=== PATIENT | female | born 1985 | race African-American/Black ===

== ENCOUNTER 2016-03-17 11:54 | Emergency (ER) | payer OTHER ==
[~2016-03-17] VITALS: Ht 175.3 cm; Wt 99.8 kg
[~2016-03-17 11:54] MED LIST: ALBUTEROL SULF8.5 GM INH; BACTRIM DS TAB1 EAC1 ORAL; FLUCONAZOLE100 MG ORAL; IBUPROFEN600 MG ORAL; LEVAQUIN750 MG ORAL; NKM; NORCO 5-325 TA1 EACH ORAL; PREDNISONE20 MG ORAL
[2016-03-17 12:11] VITALS: BP 127/84
[2016-03-17] MEDS ORDERED: Acetaminophen 500mg (ES) tab ORAL ONE (13:00)
--- NOTE | 2016-03-17 15:25 | Emergency Room Report ---
History of Present Illness General Chief Complaint: Lower Back Pain or Injury Source: Patient Present Illness HPI 30-year-old female presents to emergency Department complaining of left-sided adnexal pain radiating up into the left hip x2 days. She reports pain is 10 on 10 in severity has had minimal response to Motrin. Pt. reports pain awoke her form sleep this am. Patient states she had a history of fibroids and irregular periods however after being placed on oral control menstrual cycles are more regular she reports recent pain during intercourse, denies history of STDs. Patient denies vaginal bleeding or discharge. Denies . Denies nausea, vomiting, fevers, chills, dysuria, frequency, or hematuria. Denies fall/trauma, pain while lying down, minimal relief with standing. no pain exacerbation with weight. Denies CP, Palpitations, LOC, AMS, dizziness, Changes in Vision, Sensation, paresthesias, or a sudden severe headache. Allergies: Coded Allergies: No Known Allergies (Unverified , 05/09/12) Patient History Past Medical History: see triage record Past Surgical History: none Pertinent Family History: none Last Menstrual Period: 03/14/2016 Now: No : 0 Para: 0 Reviewed Nursing Documentation: PMH: Agreed, PSxH: Agreed Nursing Documentation-PMH Hx Asthma: Yes Hx Neurological Problems: No - Fracture dislocation of right 5th finger Review of Systems All Other Systems: negative except mentioned in HPI Physical Exam Vital Signs Date Time Temp Pulse Resp B/P Pulse Ox O2 Delivery O2 Flow Rate FiO2 03/17/16 12:03 98.4 89 16 127/84 100 Room Air Sp02 EP Interpretation: reviewed, normal General Appearance: no apparent distress, alert, GCS 15, non-toxic Head: normocephalic, atraumatic Eyes: bilateral eye PERRL, bilateral eye normal inspection ENT: hearing grossly normal, normal pharynx, no angioedema, normal voice Neck: full range of motion, supple/symm/no masses Respiratory: chest non-tender, lungs clear, normal breath sounds, speaking full sentences Cardiovascular #1: regular rate, rhythm, no edema Gastrointestinal: normal bowel sounds, non tender, soft, no mass, no organomegaly, no bruit, non-distended, no guarding, no hernia, no pulsatile mass , no rebound, other - negative macburnys, no peritoneal signs, negative rosvigns. Rectal: deferred Genitourinary: normal inspection, no CVA tenderness, cervix normal, ext genitalia/vag normal, other - left adenexal TTP Musculoskeletal: back normal, gait/station normal, normal range of motion, non- tender, no calf tenderness Neurologic: alert, oriented x3, responsive, motor strength/tone normal, sensory intact, speech normal Psychiatric: judgement/insight normal, memory normal, mood/affect normal, no suicidal/homicidal ideation Reflexes: 4+ bicep (R), 4+ bicep (L), 4+ tricep (R), 4+ tricep (L), 4+ knee (R) , 4+ knee (L) Skin: normal color, no rash, warm/dry, well hydrated Lymphatic: no adenopathy Medical Decision Making PA Attestation Dr. Bland is my supervising Physician whom patient management has been discussed with. Diagnostic Impression: Primary Impression: Ovarian cyst Qualified Codes: N83.201 - Unspecified ovarian cyst, right side; N83.202 - Unspecified ovarian cyst, left side ER Course Pt. presents to the ED c/o of Left -sided adnexal pain, 10/10 in severity. pain awoke pt. from sleep this am pt also reports intercourse exacerbated pain. Ddx considered but are not limited to Diverticulitis, acute appy, ovarian torsion, ectopic , PID tubo-ovarian abscess, ovarian cyst. Vital signs: are WNL, pt. is afebrile H&PE are most consistent with possible ovarian cyst, however due to presentation will r/o torsion, ectopic, and stone. ORDERS: -URINE HCG: Negative -Pelvic US Complete: bilateral ovarian cysts, no ectopic, no torsion , good doppler flow- Per preliminary radiology report ED INTERVENTIONS: -5mg Warren DISCHARGE: At this time pt. is stable for d/c to home. Will provide printed patient care instructions, and any necessary prescriptions. Care plan and follow up instructions have been discussed with the patient prior to discharge. Last Vital Signs Date Time Temp Pulse Resp B/P Pulse Ox O2 Delivery O2 Flow Rate FiO2 03/17/16 12:11 98.4 16 127/84 100 Room Air 03/17/16 12:03 89 Disposition: HOME, SELF-CARE Condition: Stable Scripts Acetaminophen* (TYLENOL EXTRA STRENGTH*) 500 Mg Tablet 500 MG ORAL Q6H, #20 TAB 0 Refills Prov: Nallely Krueger 03/17/16 Ibuprofen* (MOTRIN*) 600 Mg Tablet 600 MG ORAL THREE TIMES A DAY, #30 TAB 0 Refills Prov: Nallely Krueger 03/17/16 Referrals: NON PHYSICIAN (PCP) Patient Instructions: Ovarian Cyst Additional Instructions: Take medications as directed. Follow up with PCP in 3-5 days Return sooner to ED if new symptoms occur, or current symptoms become worse. Do not drink alcohol, drive, or operate heavy machinery while taking [ ] as this may cause drowsiness. Nallely Krueger Mar 17, 2016 15:25
--- NOTE | 2016-03-17 15:45 | Diagnostic Imaging Report ---
Indication:Lower abdominal and pelvic pain Technique: Grayscale and duplex Doppler imaging of the pelvis performed utilizing a transabdominal scan and endovaginal scan. Comparison: None Findings: Uterus is retroverted. The endometrial stripe is approximately 7 mm in thickness and appears normal. There is a cyst demonstrated within the left ovary measuring 2.8 x 1.2 cm. There is Doppler evidence of blood flow within the left ovary which appears normal otherwise. Right ovary is notable for a 1.7 cm cyst.. Uterus measures 7.6 x 4.8 x 4.3 cm. Right ovary 3.8 x 4.1 x 1.5 cm. Left ovary 5.2 x 3.6 x 2.1 cm. Impression: Bilateral ovarian cysts. Followup recommended at 6 weeks. Negative exam otherwise
[2016-03-17 16:03] VITALS: BP 124/81
[2016-03-17] MEDS ORDERED: IBUPROFEN600 MG ORAL (16:06)
[2016-03-17] MEDS ORDERED: TYLENOL EXTRA500 MG ORAL (16:06)
== END 2016-03-17 16:08 | disposition home or self-care (01) ==
LOC: EMR 13:10
DX: N83.201 Unspecified ovarian cyst, right side (principal); N83.202 Unspecified ovarian cyst, left side; J45.909 Unspecified asthma, uncomplicated
CPT/HCPCS: 76856; 81025; 99283

== ENCOUNTER 2016-04-15 16:40 | Emergency (ER) | payer OTHER ==
[~2016-04-15] VITALS: Ht 170.2 cm; Wt 99.8 kg
[~2016-04-15 16:40] MED LIST changes: +TYLENOL EXTRA500 MG ORAL
[2016-04-15] MEDS ORDERED: Morphine Sulfate 4mg/ml Inj IM ONE (17:15)
--- NOTE | 2016-04-15 18:03 | Emergency Room Report ---
History of Present Illness General Chief Complaint: Abdominal Pain Source: Patient Present Illness HPI 30-year-old female presents to emergency Department complaining of 10 out of 10 in severity uterine pain x2 days. Patient states she was just diagnosed with endometriosis and presents with her paperwork from ultrasound with diagnosis. Patient states that the [facility] on just began placing her on OCPs and gave her Motrin which is not helping. Patient reports nausea due to intense pain. Patient denies at this time patient denies fevers or chills. Patient denies constipation or diarrhea patient denies vaginal discharge or history of STI. Allergies: Coded Allergies: No Known Allergies (Unverified , 05/09/12) Patient History Past Medical History: see triage record Past Surgical History: none Pertinent Family History: none Last Menstrual Period: 04/11/2016 Now: No Immunizations: UTD Reviewed Nursing Documentation: PMH: Agreed, PSxH: Agreed Nursing Documentation-PMH Past Medical History: No History, Except For Hx Asthma: Yes Hx Neurological Problems: No - Fracture dislocation of right 5th finger Review of Systems All Other Systems: negative except mentioned in HPI Physical Exam Vital Signs Date Time Temp Pulse Resp B/P Pulse Ox O2 Delivery O2 Flow Rate FiO2 04/15/16 16:46 98.4 77 14 131/82 100 Room Air Sp02 EP Interpretation: reviewed, normal General Appearance: alert, GCS 15, non-toxic, mild distress Head: normocephalic, atraumatic Eyes: bilateral eye PERRL, bilateral eye normal inspection ENT: hearing grossly normal, normal pharynx, no angioedema, normal voice Neck: full range of motion, supple/symm/no masses Respiratory: chest non-tender, lungs clear, normal breath sounds, speaking full sentences Cardiovascular #1: regular rate, rhythm, no edema Gastrointestinal: normal bowel sounds, soft, no rebound, other - midline uterine/bladder TTP. Negative Crandall signs, Negative MacBurney's sign, Negative Rosvigns Sign, Negative Psoas, No Peritoneal signs. Rectal: deferred Genitourinary: normal inspection, no CVA tenderness Musculoskeletal: back normal, gait/station normal, normal range of motion, non- tender, no calf tenderness Neurologic: alert, oriented x3, responsive, motor strength/tone normal, sensory intact, speech normal Psychiatric: judgement/insight normal, memory normal, mood/affect normal, no suicidal/homicidal ideation Skin: normal color, no rash, warm/dry, well hydrated Lymphatic: no adenopathy Medical Decision Making PA Attestation Dr. cavazos is my supervising Physician whom patient management has been discussed with. Diagnostic Impression: Primary Impression: Hx of endometriosis Additional Impression: Pelvic pain ER Course 30-year-old female presents to emergency Department complaining of 10 out of 10 in severity uterine pain x2 days. Patient states she was just diagnosed with endometriosis and presents with her paperwork from ultrasound with diagnosis. Patient states that the [facility] on just began placing her on OCPs and gave her Motrin which is not helping. Patient reports nausea due to intense pain. Patient denies at this time patient denies fevers or chills. Patient denies constipation or diarrhea patient denies vaginal discharge or history of STI. Ddx considered but are not limited to PID, Endometriosis, , Ectopic, UTI Vital signs: are WNL, pt. is afebrile H&PE are most consistent with Endometriosis ORDERS: - UA: unremarkable -Urine Hcg: Negative ED INTERVENTIONS: - 4mg Morphine IM -Hudson PO DISCHARGE: At this time pt. is stable for d/c to home. Will provide printed patient care instructions, and any necessary prescriptions. Care plan and follow up instructions have been discussed with the patient prior to discharge. Labs Test 04/15/16 17:31 Urine Color Yellow Urine Appearance Clear Urine pH 6 (4.5-8.0) Urine Specific [place] 1.015 (1.005-1.035) Urine Protein Negative (NEGATIVE) Urine Glucose (UA) Negative (NEGATIVE) Urine Ketones Negative (NEGATIVE) Urine Occult Blood Negative (NEGATIVE) Urine Nitrite Negative (NEGATIVE) Urine Bilirubin Negative (NEGATIVE) Urine Urobilinogen Normal MG/DL (0.0-1.0) Urine Leukocyte Esterase 1+ (NEGATIVE) Urine RBC 0-2 /HPF (0 - 2) Urine WBC 0-2 /HPF (0 - 2) Urine Squamous Epithelial Cells Few /LPF (NONE/OCC) Urine Bacteria Few /HPF (NONE) Urine HCG, Qualitative Negative Last Vital Signs Date Time Temp Pulse Resp B/P Pulse Ox O2 Delivery O2 Flow Rate FiO2 04/15/16 16:46 98.4 77 14 131/82 100 Room Air Disposition: HOME, SELF-CARE Condition: Stable Scripts Ibuprofen* (MOTRIN*) 600 Mg Tablet 600 MG ORAL THREE TIMES A DAY, #30 TAB 0 Refills Prov: Nallely Krueger 04/15/16 Hydrocodone Bit/Acetaminophen 5-325* (NORCO 5-325*) 1 Each Tablet 1 TAB ORAL Q6H Y for For Pain, #10 TAB 0 Refills Prov: Nallley Krueger 04/15/16 Referrals: [facility],REFERRING (PCP) Patient Instructions: Endometriosis Additional Instructions: Take medications as directed. Follow up with PCP or OBGYN in 3 days Return sooner to ED if new symptoms occur, or current symptoms become worse. Do not drink alcohol, drive, or operate heavy machinery while taking Hudson as this may cause drowsiness. Nallely Krueger Apr 15, 2016 18:02
[2016-04-15 18:08] LABS: APPEARANCE,URINE CLEAR; KETONES,URINE NEGATIVE (NEGATIVE); LEUKOCYTE ESTERASE ,URINE 1+ (NEGATIVE); NITRITE,URINE NEGATIVE (NEGATIVE); PH,URINE 6 (4.5-8.0); PROTEIN,URINE NEGATIVE (NEGATIVE); UROBILINOGEN,URINE NORMAL MG/DL (0.0-1.0)
[2016-04-15 18:21] VITALS: BP 135/78
[2016-04-15] MEDS ORDERED: NORCO 5-325 TA1 EACH ORAL (18:26)
[2016-04-15] MEDS ORDERED: IBUPROFEN600 MG ORAL (18:26)
[2016-04-15] MEDS ORDERED: Norco 5mg/325mg tab ORAL ONE (18:30)
[2016-04-15 18:39] LABS: BACTERIA,URINE FEW /HPF; RBC,URINE 0-2 /HPF (0 - 2); SQUAMOUS EPITHELIAL CELL,UR FEW /LPF (NONE/OCC); WBC,URINE 0-2 /HPF (0 - 2)
[2016-04-15 19:01] VITALS: BP 135/78
== END 2016-04-15 19:02 | disposition home or self-care (01) ==
LOC: EMR 17:18
DX: R10.2 Pelvic and perineal pain (principal); J45.909 Unspecified asthma, uncomplicated
CPT/HCPCS: 81003; 81025; 96372; 99283; J2270

== ENCOUNTER 2016-06-10 04:20 | Emergency (ER) | payer OTHER ==
[~2016-06-10] VITALS: Ht 170.2 cm; Wt 95.3 kg
[2016-06-10] MEDS ORDERED: HYDROmorphone 1mg/ml Carpuject IVP ONE (05:00)
--- NOTE | 2016-06-10 05:04 | Emergency Room Report ---
History of Present Illness General Chief Complaint: Abdominal Pain Source: Patient Present Illness HPI This is a 30-year-old female with history of endometriosis. She had recent laparoscopic surgery done at [facility] on June 04. His for lysis of adhesion. Also to confirm that she has endometriosis. She was due wanted tonight when she developed severe pain. Pain is diffuse in nature. She had one episode vomiting. Also noted some vaginal bleeding. Denies any fever or chills. No fever or chills. Had only one bowel movement but that was on the first day. Not passing gas. Allergies: Coded Allergies: No Known Allergies (Unverified , 05/09/12) Patient History Past Medical History: see triage record, old chart reviewed Past Surgical History: other Pertinent Family History: none Social History: Denies: smoking Last Menstrual Period: JUNE 04 Now: No : 0 Para: 0 Immunizations: other Reviewed Nursing Documentation: PMH: Agreed, PSxH: Agreed Nursing Documentation-PMH Hx Asthma: Yes Hx Neurological Problems: No - Fracture dislocation of right 5th finger Review of Systems Eye: Denies: blurred vision, eye pain ENT: Denies: ear pain, nose congestion, throat swelling Respiratory: Denies: cough, shortness of breath Cardiovascular: Denies: chest pain, palpitations Gastrointestinal: Reports: abdominal pain, nausea, vomiting, Denies: diarrhea Musculoskeletal: Denies: back pain, joint pain Skin: Denies: rash Neurological: Denies: headache, numbness Endocrine: Denies: increased thirst, increased urine Hematologic/Lymphatic: Denies: easy bruising All Other Systems: negative except mentioned in HPI Physical Exam Vital Signs Date Time Temp Pulse Resp B/P Pulse Ox O2 Delivery O2 Flow Rate FiO2 06/10/16 04:24 98.1 76 18 142/95 100 Room Air vitals normal Sp02 EP Interpretation: reviewed, normal General Appearance: well appearing, no apparent distress, alert Head: normocephalic, atraumatic Eyes: bilateral eye EOMI, bilateral eye PERRL ENT: hearing grossly normal, normal pharynx Neck: full range of motion, supple, no meningismus Respiratory: chest non-tender, lungs clear, normal breath sounds Cardiovascular #1: regular rate, rhythm, no murmur Gastrointestinal: normal bowel sounds, no mass, no organomegaly, no bruit, non- distended, tenderness - Diffuse, other - Umbilical site: Clean. No redness, decreased bowel sounds Musculoskeletal: back normal, gait/station normal, normal range of motion Psychiatric: mood/affect normal Skin: warm/dry Medical Decision Making Diagnostic Impression: Primary Impression: Post-operative pain ER Course Patient presents with postoperative pain. His most likely secondary to gas and constipation. I see no obvious obstruction or free air. Official CT scan reading from radiologist pending. If negative patient can be discharged home. Lab Results Impression labs unremarkable CT/MRI/US Diagnostic Results CT/MRI/US Diagnostic Results : Imaging Test Ordered: CT abdomen and pelvis Impression CT read by radiologist: no obstruction or perforation. Last Vital Signs Date Time Temp Pulse Resp B/P Pulse Ox O2 Delivery O2 Flow Rate FiO2 06/10/16 04:24 98.1 76 18 142/95 100 Room Air Status: improved Disposition: HOME, SELF-CARE Condition: Stable Referrals: [facility],REFERRING (PCP) Patient Instructions: Abdominal Pain, Adult Additional Instructions: Followup your Dr. in 2-3 days. Return if symptom worsen. KATIE STALLWORTH M.D. Jun 10, 2016 05:04
[2016-06-10 05:23] VITALS: BP 117/98
[2016-06-10 05:33] LABS: BASOPHILS % (AUTO) 0.9 % (0.0-2.0); EOSINOPHILS % (AUTO) 2.5 % (0.0-3.0); LYMPHOCYTES % (AUTO) 34.6 % (20.0-45.0); MEAN CORPUSCULAR HEMOGLOBIN 29.5 PG (27.0-31.0); MEAN CORPUSCULAR HGB CONC 32.7 G/DL (32.0-36.0); MEAN CORPUSCULAR VOLUME 90 FL (80-99); MONOCYTES % (AUTO) 7.1 % (1.0-10.0); NEUTROPHILS % (AUTO) 54.9 % (45.0-75.0); PLATELET COUNT 452 K/UL (150-450); RED BLOOD COUNT 4.39 M/UL (4.20-5.40); RED CELL DISTRIBUTION WIDTH 12.3 % (11.6-14.8); WHITE BLOOD COUNT 7.3 K/UL (4.8-10.8)
[2016-06-10 05:36] LABS: APPEARANCE,URINE CLEAR; KETONES,URINE NEGATIVE (NEGATIVE); LEUKOCYTE ESTERASE ,URINE NEGATIVE (NEGATIVE); NITRITE,URINE NEGATIVE (NEGATIVE); PH,URINE 7 (4.5-8.0); PROTEIN,URINE NEGATIVE (NEGATIVE); UROBILINOGEN,URINE NORMAL MG/DL (0.0-1.0)
[2016-06-10 05:45] LABS: SQUAMOUS EPITHELIAL CELL,UR MODERATE /LPF (NONE/OCC); WBC,URINE 0-2 /HPF (0 - 2)
[2016-06-10 05:46] LABS: BACTERIA,URINE FEW /HPF
[2016-06-10 05:49] LABS: ALANINE AMINOTRANSFERASE 23 U/L (3-33); ALBUMIN/GLOBULIN RATIO 1.3 (1.0-2.7); ANION GAP 15 (5-15); ASPARTATE AMINO TRANSFERASE 24 U/L (5-40); CALCIUM 8.6 mg/dL (8.6-10.2); CARBON DIOXIDE 24 mEQ/L (20-30); CHLORIDE 103 mEQ/L (98-107); CREATININE 0.6 mg/dL (0.5-0.9); GLOMERULAR FILTRATION RATE > 60 mL/min (>60); HEMOLYSIS 4; LIPASE 17 U/L (< 60); POTASSIUM 3.3 mEQ/L (3.4-4.9); SODIUM 142 mEQ/L (135-145); TOTAL PROTEIN 6.7 g/dL (6.6-8.7)
[2016-06-10 06:37] VITALS: BP 117/98
--- NOTE | 2016-06-10 10:57 | Diagnostic Imaging Report ---
Indication: Left lower quadrant pain x5 hours Technique: Spiral acquisitions obtained through the abdomen and pelvis. No oral contrast utilized, per emergency room physician request No IV contrast utilized, per referring physician request.. Multiplanar reconstructions were generated. Total dose length product 938 mGycm. CTDIvol(s) 17 mGy Comparison: Findings: No renal or calculi, hydronephrosis, or hydroureter. Lack of IV contrast limits assessment of the renal parenchyma. No gross renal parenchymal mass or cyst demonstrated. Lack of IV contrast limits assessment of the other solid organs. Liver demonstrates a 1.5 cm cyst in segment, as well as questionably other small subcentimeter low-attenuation lesions which are too small to characterize. The gallbladder, bile ducts, pancreas, spleen, adrenals are unremarkable. No retroperitoneal or mesenteric mass or adenopathy. No pelvic mass or adenopathy. The appendix is not definitely identified, but there are no findings to suggest acute appendicitis. No evidence of diverticulosis or diverticulitis. No small bowel distention. No free or loculated peritoneal air or fluid. The distal esophagus, stomach, duodenum are unremarkable. The included lung bases are clear. The bones are unremarkable. Impression: No acute abnormality Incidental finding of right lobe hepatic cyst This agrees with the preliminary interpretation provided overnight by Dr. Saldana The CT scanner at [facility] is accredited by the [employer] and the scans are performed using protocols designed to limit radiation exposure to as low as reasonably achievable to attain images of sufficient resolution adequate for diagnostic evaluation.
== END 2016-06-10 06:37 | disposition home or self-care (01) ==
LOC: EMR 04:30
DX: R10.30 Lower abdominal pain, unspecified (principal); G89.18 Other acute postprocedural pain; J45.909 Unspecified asthma, uncomplicated; Z98.890 Other specified postprocedural states
CPT/HCPCS: 36415; 74176; 80053; 81003; 81025; 83690; 85025; 96360; 96374; 96375; 99284; J1170; J2405

== ENCOUNTER 2016-06-29 18:50 | Emergency (ER) | payer OTHER ==
[~2016-06-29] VITALS: Ht 170.2 cm; Wt 90.7 kg
[2016-06-29 19:25] VITALS: BP 150/86
[2016-06-29] MEDS ORDERED: Ketorolac 30mg Inj IV ONE (20:00)
[2016-06-29] MEDS ORDERED: Morphine Sulfate 4mg/ml Inj IVP ONE (20:00)
[2016-06-29 20:43] LABS: APPEARANCE,URINE SLIGHTLY CLOUDY; KETONES,URINE 3+ (NEGATIVE); LEUKOCYTE ESTERASE ,URINE 3+ (NEGATIVE); NITRITE,URINE POSITIVE (NEGATIVE); PH,URINE 7 (4.5-8.0); PROTEIN,URINE 3+ (NEGATIVE); UROBILINOGEN,URINE 4 MG/DL (0.0-1.0)
[2016-06-29 20:54] LABS: ALANINE AMINOTRANSFERASE 14 U/L (3-33); ALBUMIN/GLOBULIN RATIO 1.4 (1.0-2.7); ANION GAP 18 (5-15); ASPARTATE AMINO TRANSFERASE 15 U/L (5-40); CALCIUM 9.7 mg/dL (8.6-10.2); CARBON DIOXIDE 23 mEQ/L (20-30); CHLORIDE 99 mEQ/L (98-107); CREATININE 0.7 mg/dL (0.5-0.9); GLOMERULAR FILTRATION RATE > 60 mL/min (>60); HEMOLYSIS 19; LIPASE 19 U/L (< 60); POTASSIUM 3.8 mEQ/L (3.4-4.9); SODIUM 140 mEQ/L (135-145); TOTAL PROTEIN 8.2 g/dL (6.6-8.7)
[2016-06-29 21:14] LABS: BACTERIA,URINE FEW /HPF; RBC,URINE 20-30 /HPF (0 - 2); SQUAMOUS EPITHELIAL CELL,UR FEW /LPF (NONE/OCC)
[2016-06-29 21:26] LABS: BASOPHILS % (AUTO) 1.5 % (0.0-2.0); EOSINOPHILS % (AUTO) 0.1 % (0.0-3.0); MEAN CORPUSCULAR HEMOGLOBIN 31.4 PG (27.0-31.0); MEAN CORPUSCULAR HGB CONC 34.1 G/DL (32.0-36.0); MEAN CORPUSCULAR VOLUME 92 FL (80-99); MEAN PLATELET VOLUME 7.7 FL (6.5-10.1); MONOCYTES % (AUTO) 7.2 % (1.0-10.0); NEUTROPHILS % (AUTO) 75.2 % (45.0-75.0); PLATELET COUNT 297 K/UL (150-450); RED BLOOD COUNT 3.92 M/UL (4.20-5.40); RED CELL DISTRIBUTION WIDTH 12.5 % (11.6-14.8); WHITE BLOOD COUNT 9.1 K/UL (4.8-10.8)
[2016-06-29 21:31] VITALS: BP 128/91
[2016-06-29] MEDS ORDERED: cefTRIAXone 1 GM in NS 55 ML IVPB ONE (22:15)
--- NOTE | 2016-06-29 22:30 | Emergency Room Report ---
History of Present Illness General Chief Complaint: Abdominal Pain Source: Patient Present Illness HPI Patient presents with lower abdominal pain, vomiting bilious material and passing some bloody discharge. This began this morning. Pain is 10/10, burning and sharp. She had laparoscopy on June 04. She had excision of endometriosis and scars. She's only had incisional pain before today. This is also the area where the pain is. At this point she also has abdominal pain that suprapubic and mostly focused on the area of incision. No dysuria. No fevers. Loose stools, but not diarrhea. With endometriosis, she's had similar pain in the past. She doesn't believe she is . Due to go for hormonal treatment to induce a menopausal state tomorrow or Thursday. Allergies: Coded Allergies: No Known Allergies (Unverified , 05/09/12) Patient History Past Medical History: see triage record Past Surgical History: other - lap for endometriosis Social History: Denies: smoking Social History Narrative with sig other Last Menstrual Period: 07/05/16 Now: No Reviewed Nursing Documentation: PMH: Agreed, PSxH: Agreed Nursing Documentation-PMH Hx Asthma: Yes Hx Neurological Problems: No - Fracture dislocation of right 5th finger Review of Systems All Other Systems: negative except mentioned in HPI Physical Exam Vital Signs Date Time Temp Pulse Resp B/P Pulse Ox O2 Delivery O2 Flow Rate FiO2 06/29/16 18:52 98.1 74 16 139/74 100 Room Air Sp02 EP Interpretation: reviewed, normal General Appearance: well appearing, no apparent distress, GCS 15 Head: normocephalic Eyes: bilateral eye PERRL, bilateral eye normal inspection ENT: moist mucus membranes Neck: supple Respiratory: lungs clear, normal breath sounds Cardiovascular #1: regular rate, rhythm Cardiovascular #2: 2+ radial (R) Gastrointestinal: normal bowel sounds, soft, no guarding, no rebound, tenderness Genitourinary: no CVA tenderness Musculoskeletal: back normal, gait/station normal, normal range of motion Neurologic: alert, oriented x3, grossly normal Psychiatric: mood/affect normal Skin: normal inspection, warm/dry, other - incision no erythema or fluctuance Medical Decision Making Diagnostic Impression: Primary Impression: Pelvic pain Additional Impression: UTI (urinary tract infection) Qualified Codes: N30.00 - Acute cystitis without hematuria ER Course Patient with suprapubic pain post recent laparoscopic procedure. DDx: SBO, gastroenteritis, UTI, endometriosis, ovarian cyst, diverticulitis amongst others. Evaluation with IV, labs, abd film and urine. Patient will be treated with zofran and analgesics. Labs unremarkable (preg neg) except for UTI. Abd film NSBGP, no obstruction. Antibiotics given. Improved. Pain minimal. Patient stable for outpatient observation and treatment. Laboratory Tests Test 06/29/16 20:25 06/29/16 20:34 Urine Color Red Urine Appearance Slightly cloudy Urine pH 7 (4.5-8.0) Urine Specific [place] 1.015 (1.005-1.035) Urine Protein 3+ (NEGATIVE) H Urine Glucose (UA) Negative (NEGATIVE) Urine Ketones 3+ (NEGATIVE) H Urine Occult Blood 5+ (NEGATIVE) H Urine Nitrite Positive (NEGATIVE) H Urine Bilirubin Negative (NEGATIVE) Urine Urobilinogen 4 MG/DL (0.0-1.0) H Urine Leukocyte Esterase 3+ (NEGATIVE) H Urine RBC 20-30 /HPF (0 - 2) H Urine WBC 5-10 /HPF (0 - 2) H Urine Squamous Epithelial Cells Few /LPF (NONE/OCC) Urine Bacteria Few /HPF (NONE) Sodium Level 140 mEQ/L (135-145) Potassium Level 3.8 mEQ/L (3.4-4.9) Chloride Level 99 mEQ/L (98-107) Carbon Dioxide Level 23 mEQ/L (20-30) Anion Gap 18 (5-15) H Blood Urea Nitrogen 10 mg/dL (7-23) Creatinine 0.7 mg/dL (0.5-0.9) Estimate Glomerular Filtration Rate > 60 mL/min (>60) Glucose Level 102 mg/dL (74-106) Calcium Level 9.7 mg/dL (8.6-10.2) Total Bilirubin 0.4 mg/dL (0.0-1.2) Aspartate Amino Transferase (AST) 15 U/L (5-40) Alanine Aminotransferase (ALT) 14 U/L (3-33) Alkaline Phosphatase 94 U/L (35-104) Total Protein 8.2 g/dL (6.6-8.7) Albumin 4.8 g/dL (3.5-5.2) Globulin 3.4 g/dL Albumin/Globulin Ratio 1.4 (1.0-2.7) Lipase 19 U/L (< 60) Human Chorionic Gonadotropin, Quant < 1 mIU/mL White Blood Count 9.1 K/UL (4.8-10.8) Red Blood Count 3.92 M/UL (4.20-5.40) L Hemoglobin 12.3 G/DL (12.0-16.0) Hematocrit 36.1 % (37.0-47.0) L Mean Corpuscular Volume 92 FL (80-99) Mean Corpuscular Hemoglobin 31.4 PG (27.0-31.0) H Mean Corpuscular Hemoglobin Concent 34.1 G/DL (32.0-36.0) Red Cell Distribution Width 12.5 % (11.6-14.8) Platelet Count 297 K/UL (150-450) Mean Platelet Volume 7.7 FL (6.5-10.1) Neutrophils (%) (Auto) 75.2 % (45.0-75.0) H Lymphocytes (%) (Auto) 16.0 % (20.0-45.0) L Monocytes (%) (Auto) 7.2 % (1.0-10.0) Eosinophils (%) (Auto) 0.1 % (0.0-3.0) Basophils (%) (Auto) 1.5 % (0.0-2.0) Other X-Ray Diagnostic Results Other X-Ray Diagnostic Results : X-Ray Ordered: abd EP Interpretation: Yes Findings: other - NSBGP Number of Views: 1 Last Vital Signs Date Time Temp Pulse Resp B/P Pulse Ox O2 Delivery O2 Flow Rate FiO2 06/29/16 22:44 70 18 134/80 100 Room Air 06/29/16 22:43 98.1 Status: improved Disposition: HOME, SELF-CARE Condition: Improved Scripts Nitrofurantoin Monohyd/M-Cryst* (MACROBID 100 MG*) 100 Mg Capsule 100 MG ORAL EVERY 12 HOURS, #14 CAP Prov: Elieser Orozco M.D. 06/29/16 Ibuprofen* (MOTRIN*) 600 Mg Tablet 600 MG ORAL Q6H Y for For Pain, #20 TAB Prov: Elieser Orozco M.D. 06/29/16 Hydrocodone Bit/Acetaminophen 5-325* (NORCO 5-325*) 1 Each Tablet 1 TAB ORAL Q6H Y for For Pain, #10 TAB 0 Refills Prov: Elieser Orozco M.D. 06/29/16 Referrals: [facility],REFERRING (PCP) Elieser Orozco M.D. Jun 29, 2016 22:30
[2016-06-29] MEDS ORDERED: NORCO 5-325 TA1 EACH ORAL (22:32)
[2016-06-29] MEDS ORDERED: NITROFURANTOIN100 M2 ORAL (22:32)
[2016-06-29] MEDS ORDERED: IBUPROFEN600 MG ORAL (22:32)
[2016-06-29 22:43] VITALS: BP 129/82
[2016-06-29 22:44] VITALS: BP 134/80
--- NOTE | 2016-06-30 11:50 | Diagnostic Imaging Report ---
Indication: Abdominal pain Technique: Supine view of the abdomen Comparison: Pattern Vault Clerk image from abdomen pelvis CT dated 06/10/2016 Findings: Bowel gas gas pattern is unremarkable. No unusual masses or calcifications. Impression: Negative This agrees with the preliminary interpretation provided by the emergency room physician
== END 2016-06-29 22:45 | disposition home or self-care (01) ==
LOC: EMR 19:38
DX: R10.2 Pelvic and perineal pain (principal); N39.0 Urinary tract infection, site not specified; Z98.890 Other specified postprocedural states; J45.909 Unspecified asthma, uncomplicated; Z87.42 Personal history of other diseases of the female genital tract
CPT/HCPCS: 36415; 74000; 80053; 81003; 83690; 84702; 85025; 96360; 96374; 96375; 99284; J0696; J1885; J2270; J2405

== ENCOUNTER 2016-07-04 09:33 | Emergency (ER) | payer OTHER ==
[~2016-07-04] VITALS: Ht 170.2 cm; Wt 90.7 kg
[~2016-07-04 09:33] MED LIST changes: +NITROFURANTOIN100 M2 ORAL
[2016-07-04] MEDS ORDERED: Famotidine 20 MG/ 2ML VIAL IVP ONE (09:45)
[2016-07-04] MEDS ORDERED: Morphine Sulfate 4mg/ml Inj IVP ONE (09:45)
[2016-07-04] MEDS ORDERED: Ketorolac 30mg Inj IV ONE (09:45)
--- NOTE | 2016-07-04 09:47 | Emergency Room Report ---
History of Present Illness General Chief Complaint: To Be Triaged Source: Patient Present Illness HPI Patient presents with vomiting and abdominal pain. She was seen here June 29 for similar complaints of. She underwent laparoscopic surgery to remove endometriosis on June 04. The pain was fairly controlled until the . Evaluation at that time she had a normal white count and abdominal films were unremarkable. She was improved. Yesterday she received a Depo-Provera shot and subsequent to that she's been vomiting with abdominal pain. The pain is 10/10 and constant and diffuse. Is no fever. There's no dysuria. She's moving her bowels normally. She is taking antibiotics I prescribed for the UTI. A CT had been performed 06/10: Impression: No acute abnormality Incidental finding of right lobe hepatic cyst Allergies: Coded Allergies: No Known Allergies (Unverified , 05/09/12) Patient History Past Medical History: see triage record Past Surgical History: other - lap 06/04 Social History: Denies: smoking Social History Narrative with sig other Reviewed Nursing Documentation: PMH: Agreed, PSxH: Agreed Nursing Documentation-PMH Hx Asthma: Yes Hx Neurological Problems: No - Fracture dislocation of right 5th finger Review of Systems All Other Systems: negative except mentioned in HPI Medical Decision Making Diagnostic Impression: Primary Impression: Partially treated UTI Additional Impressions: Vomiting Qualified Codes: R11.2 - Nausea with vomiting, unspecified Abdominal pain Qualified Codes: R10.30 - Lower abdominal pain, unspecified ER Course The patient presents with abdominal pain after laparoscopic procedure or a month ago. She has endometriosis. She received a shot of Depo-Provera and has been vomiting since yesterday. Differential includes UTI, postsurgical pain, abdominal wall strain, pain from endometriosis. Evaluation will be with labs urinalysis. She'll receive IV hydration and Zofran and analgesia. No imaging studies indicated (unless WBC elevated). Labs are normal. Still with pyuria. Improved after treatment. Tolerating by mouth fluids. Patient stable for outpatient observation and treatment. Laboratory Tests Test 07/04/16 09:52 07/04/16 12:29 White Blood Count 6.2 K/UL (4.8-10.8) Red Blood Count 4.40 M/UL (4.20-5.40) Hemoglobin 13.1 G/DL (12.0-16.0) Hematocrit 40.7 % (37.0-47.0) Mean Corpuscular Volume 92 FL (80-99) Mean Corpuscular Hemoglobin 29.7 PG (27.0-31.0) Mean Corpuscular Hemoglobin Concent 32.1 G/DL (32.0-36.0) Red Cell Distribution Width 12.7 % (11.6-14.8) Platelet Count 341 K/UL (150-450) Mean Platelet Volume 7.8 FL (6.5-10.1) Neutrophils (%) (Auto) 77.5 % (45.0-75.0) H Lymphocytes (%) (Auto) 13.1 % (20.0-45.0) L Monocytes (%) (Auto) 8.0 % (1.0-10.0) Eosinophils (%) (Auto) 0.5 % (0.0-3.0) Basophils (%) (Auto) 0.9 % (0.0-2.0) Sodium Level 140 mEQ/L (135-145) Potassium Level 3.2 mEQ/L (3.4-4.9) L Chloride Level 98 mEQ/L (98-107) Carbon Dioxide Level 24 mEQ/L (20-30) Anion Gap 18 (5-15) H Blood Urea Nitrogen 6 mg/dL (7-23) L Creatinine 0.8 mg/dL (0.5-0.9) Estimate Glomerular Filtration Rate > 60 mL/min (>60) Glucose Level 95 mg/dL (74-106) Calcium Level 9.3 mg/dL (8.6-10.2) Total Bilirubin 0.4 mg/dL (0.0-1.2) Aspartate Amino Transferase (AST) 18 U/L (5-40) Alanine Aminotransferase (ALT) 14 U/L (3-33) Alkaline Phosphatase 95 U/L (35-104) Total Protein 7.9 g/dL (6.6-8.7) Albumin 4.4 g/dL (3.5-5.2) Globulin 3.5 g/dL Albumin/Globulin Ratio 1.2 (1.0-2.7) Lipase 27 U/L (< 60) Urine Color Pale yellow Urine Appearance Clear Urine pH 6 (4.5-8.0) Urine Specific [place] 1.010 (1.005-1.035) Urine Protein Negative (NEGATIVE) Urine Glucose (UA) Negative (NEGATIVE) Urine Ketones 3+ (NEGATIVE) H Urine Occult Blood 1+ (NEGATIVE) H Urine Nitrite Negative (NEGATIVE) Urine Bilirubin Negative (NEGATIVE) Urine Urobilinogen Normal MG/DL (0.0-1.0) Urine Leukocyte Esterase 3+ (NEGATIVE) H Urine RBC 2-4 /HPF (0 - 2) H Urine WBC 5-10 /HPF (0 - 2) H Urine Squamous Epithelial Cells Few /LPF (NONE/OCC) Urine Bacteria None /HPF (NONE) Urine HCG, Qualitative Negative Last Vital Signs Date Time Temp Pulse Resp B/P Pulse Ox O2 Delivery O2 Flow Rate FiO2 07/04/16 14:13 98.2 57 16 121/62 99 Room Air Status: improved Disposition: HOME, SELF-CARE Condition: Improved Scripts Tramadol Hcl* (ULTRAM*) 50 Mg Tablet 50 MG ORAL Q6H Y for For Pain, #12 TAB 0 Refills Prov: Elieser Orozco M.D. 07/04/16 Ondansetron Odt* (ZOFRAN ODT*) 4 Mg Tab.rapdis 4 MG ORAL Q6H Y for Nausea & Vomiting, #8 TAB 1 Refill Prov: Elieser Orozco M.D. 07/04/16 Elieser Orozco M.D. Jul 04, 2016 09:46
[2016-07-04 10:08] VITALS: BP 117/58
[2016-07-04 10:10] LABS: BASOPHILS % (AUTO) 0.9 % (0.0-2.0); EOSINOPHILS % (AUTO) 0.5 % (0.0-3.0); LYMPHOCYTES % (AUTO) 13.1 % (20.0-45.0); MEAN CORPUSCULAR HEMOGLOBIN 29.7 PG (27.0-31.0); MEAN CORPUSCULAR HGB CONC 32.1 G/DL (32.0-36.0); MEAN CORPUSCULAR VOLUME 92 FL (80-99); MEAN PLATELET VOLUME 7.8 FL (6.5-10.1); NEUTROPHILS % (AUTO) 77.5 % (45.0-75.0); PLATELET COUNT 341 K/UL (150-450); RED CELL DISTRIBUTION WIDTH 12.7 % (11.6-14.8); WHITE BLOOD COUNT 6.2 K/UL (4.8-10.8)
[2016-07-04 10:32] LABS: ALANINE AMINOTRANSFERASE 14 U/L (3-33); ALBUMIN/GLOBULIN RATIO 1.2 (1.0-2.7); ANION GAP 18 (5-15); ASPARTATE AMINO TRANSFERASE 18 U/L (5-40); CALCIUM 9.3 mg/dL (8.6-10.2); CARBON DIOXIDE 24 mEQ/L (20-30); CHLORIDE 98 mEQ/L (98-107); CREATININE 0.8 mg/dL (0.5-0.9); GLOMERULAR FILTRATION RATE > 60 mL/min (>60); HEMOLYSIS 1; LIPASE 27 U/L (< 60); POTASSIUM 3.2 mEQ/L (3.4-4.9); SODIUM 140 mEQ/L (135-145); TOTAL PROTEIN 7.9 g/dL (6.6-8.7)
[2016-07-04 13:09] LABS: APPEARANCE,URINE CLEAR; KETONES,URINE 3+ (NEGATIVE); LEUKOCYTE ESTERASE ,URINE 3+ (NEGATIVE); NITRITE,URINE NEGATIVE (NEGATIVE); PH,URINE 6 (4.5-8.0); PROTEIN,URINE NEGATIVE (NEGATIVE); UROBILINOGEN,URINE NORMAL MG/DL (0.0-1.0)
[2016-07-04 13:14] VITALS: BP 121/62
[2016-07-04] MEDS ORDERED: KCl 10% 40mEq/30ml liquid ORAL STA (13:24)
[2016-07-04 13:31] LABS: SQUAMOUS EPITHELIAL CELL,UR FEW /LPF (NONE/OCC)
[2016-07-04] MEDS ORDERED: TRAMADOL HCL50 MG ORAL (14:06)
[2016-07-04] MEDS ORDERED: ZOFRAN ODT4 MG ORAL (14:06)
[2016-07-04 14:13] VITALS: BP 121/62
== END 2016-07-04 14:13 | disposition home or self-care (01) ==
LOC: EMR 10:10
DX: N39.0 Urinary tract infection, site not specified (principal); R11.2 Nausea with vomiting, unspecified; R10.30 Lower abdominal pain, unspecified; K76.89 Other specified diseases of liver; J45.909 Unspecified asthma, uncomplicated
CPT/HCPCS: 36415; 80053; 81003; 81025; 83690; 85025; 96374; 96375; 99284; J1885; J2270; J2405; S0028

== ENCOUNTER 2016-08-02 10:58 | Emergency (ER) | payer OTHER ==
[~2016-08-02] VITALS: Ht 170.2 cm; Wt 90.7 kg
[~2016-08-02 10:58] MED LIST changes: +TRAMADOL HCL50 MG ORAL; +ZOFRAN ODT4 MG ORAL
[2016-08-02] MEDS ORDERED: NKM (11:14)
[2016-08-02] MEDS ORDERED: PREDNISONE20 MG ORAL (11:30)
[2016-08-02] MEDS ORDERED: IBUPROFEN600 MG ORAL (11:30)
[2016-08-02] MEDS ORDERED: CLINDAMYCIN HC300 MG ORAL (11:30)
[2016-08-02 11:37] VITALS: BP 129/67
--- NOTE | 2016-08-02 12:40 | Emergency Room Report ---
History of Present Illness General Chief Complaint: Sore Throat Source: Patient, Medical Record Present Illness HPI Patient has with complaints of sore throat mainly on the right side Pain is worse with swallowing Denies any fevers denies any chills She has a palpable discomfort on the right side as well Denies any dysuria frequency Denies any chest pain or short of breath denies any back or flank pain Denies any vomiting denies any change in her voice Pain is 5/10 again worse with swallowing Allergies: Coded Allergies: No Known Allergies (Unverified , 05/09/12) Patient History Past Medical History: see triage record Pertinent Family History: none Last Menstrual Period: 07/26/16 : 0 Para: 0 Reviewed Nursing Documentation: PMH: Agreed, PSxH: Agreed Nursing Documentation-PMH Hx Asthma: Yes Review of Systems All Other Systems: negative except mentioned in HPI Physical Exam Vital Signs Date Time Temp Pulse Resp B/P Pulse Ox O2 Delivery O2 Flow Rate FiO2 08/02/16 11:07 98.2 72 16 129/67 99 Room Air Sp02 EP Interpretation: reviewed, normal General Appearance: well appearing, no apparent distress Head: normocephalic, atraumatic Eyes: bilateral eye EOMI, bilateral eye PERRL ENT: no angioedema, uvula midline, pharyngeal erythema - On the right side with exudates Neck: supple Respiratory: normal inspection Cardiovascular #1: regular rate, rhythm Gastrointestinal: non tender, soft Musculoskeletal: normal inspection Neurologic: alert, oriented x3, responsive Skin: no rash Lymphatic: adenopathy - Right submental Medical Decision Making Diagnostic Impression: Primary Impression: pharyngitis ER Course Patient appears to have bacterial pharyngitis No signs of any peritonsillar or retropharyngeal abscess And the patient will have initial conservative outpatient trial Please note that the patient's allergies has none however she verbalized to me allergies penicillin Last Vital Signs Date Time Temp Pulse Resp B/P Pulse Ox O2 Delivery O2 Flow Rate FiO2 08/02/16 11:37 98.2 16 129/67 99 Room Air 08/02/16 11:07 72 Status: unchanged Disposition: HOME, SELF-CARE Condition: Stable Scripts Clindamycin Hcl (CLINDAMYCIN HCL) 300 Mg Capsule 300 MG ORAL TID for 10 Days, CAP Prov: VAHE BEE D.O. 08/02/16 Ibuprofen* (MOTRIN*) 600 Mg Tablet 600 MG ORAL Q8H Y for For Pain, #30 TAB 0 Refills Prov: VAHE BEE D.O. 08/02/16 Prednisone* (PREDNISONE*) 20 Mg Tablet 20 MG ORAL BID, #8 TAB Prov: VAHE BEE D.O. 08/02/16 Referrals: [facility],REFERRING (PCP) Patient Instructions: Pharyngitis, [id number] Additional Instructions: Patient is provided with the discharge instructions notified to follow up with primary doctor in the next 2-3 days otherwise return to the er with any worsening symptoms. Please note that this report is being documented using [employer] technology. This can lead to erroneous entry secondary to incorrect interpretation by the dictating instrument. VAHE BEE D.O. August 02, 2016 12:40
== END 2016-08-02 11:37 | disposition home or self-care (01) ==
LOC: EMR 11:30
DX: J02.9 Acute pharyngitis, unspecified (principal); J45.909 Unspecified asthma, uncomplicated
CPT/HCPCS: 99284

== ENCOUNTER 2016-10-17 20:46 | Emergency (ER) | payer OTHER ==
[~2016-10-17] VITALS: Ht 170.2 cm; Wt 95.7 kg
[~2016-10-17 20:46] MED LIST changes: +CLINDAMYCIN HC300 MG ORAL
[2016-10-17] MEDS ORDERED: NORETHINDRONE0.35 MG PO (21:03)
[2016-10-17] MEDS ORDERED: ALBUTEROL SULF8.5 GM INH (21:15)
[2016-10-17] MEDS ORDERED: IBUPROFEN600 MG ORAL (21:15)
[2016-10-17] MEDS ORDERED: PREDNISONE20 MG ORAL (21:15)
[2016-10-17] MEDS ORDERED: PredniSONE 20mg tab ORAL ONE (21:15)
--- NOTE | 2016-10-17 21:15 | Emergency Room Report ---
History of Present Illness General Chief Complaint: Upper Respiratory Illness Source: Patient Present Illness HPI Is a 31-year-old female with history of asthma. It is usually well-controlled. She presents with a sore throat and cough. Start wheezing. Denies any fever chills denies nausea vomiting. Does have congestion runny nose. She is out of her inhaler. Last and she has to be on steroid was over a year ago. Allergies: Coded Allergies: No Known Allergies (Unverified , 05/09/12) Patient History Past Medical History: see triage record, old chart reviewed, asthma Past Surgical History: none Pertinent Family History: none Social History: Denies: smoking Last Menstrual Period: September Now: No - Menopause Immunizations: other Reviewed Nursing Documentation: PMH: Agreed, PSxH: Agreed Nursing Documentation-PMH Past Medical History: No History, Except For Hx Asthma: Yes Review of Systems Eye: Denies: blurred vision, eye pain ENT: Reports: nasal discharge, nose congestion, throat pain, Denies: ear pain, throat swelling Respiratory: Reports: cough, shortness of breath, wheezing Cardiovascular: Denies: chest pain, palpitations Gastrointestinal: Denies: abdominal pain, diarrhea, nausea, vomiting Musculoskeletal: Denies: back pain, joint pain Skin: Denies: rash Neurological: Denies: headache, numbness Endocrine: Denies: increased thirst, increased urine Hematologic/Lymphatic: Denies: easy bruising All Other Systems: negative except mentioned in HPI Physical Exam Vital Signs Date Time Temp Pulse Resp B/P Pulse Ox O2 Delivery O2 Flow Rate FiO2 10/17/16 20:57 98.4 61 16 137/73 96 Room Air vitals normal Sp02 EP Interpretation: reviewed, normal General Appearance: well appearing, no apparent distress, alert Head: normocephalic, atraumatic Eyes: bilateral eye EOMI, bilateral eye PERRL ENT: hearing grossly normal, pharyngeal erythema, other Neck: full range of motion, supple, no meningismus Respiratory: chest non-tender, lungs clear, normal breath sounds Cardiovascular #1: regular rate, rhythm, no murmur Gastrointestinal: normal bowel sounds, non tender, no mass, no organomegaly, no bruit, non-distended Musculoskeletal: back normal, gait/station normal, normal range of motion Psychiatric: mood/affect normal Skin: warm/dry Medical Decision Making Diagnostic Impression: Primary Impression: Upper respiratory symptom ER Course Patient with a viral worse or infection. No evidence of bacterial infection. Notice of a strep throat. No wheezing here. We'll discharge home. Last Vital Signs Date Time Temp Pulse Resp B/P Pulse Ox O2 Delivery O2 Flow Rate FiO2 10/17/16 20:57 98.4 61 16 137/73 96 Room Air Status: unchanged Disposition: HOME, SELF-CARE Condition: Stable Scripts Ibuprofen* (MOTRIN*) 600 Mg Tablet 600 MG ORAL THREE TIMES A DAY, #30 TAB 0 Refills Prov: KATIE STALLWORTH M.D. 10/17/16 Prednisone* (PREDNISONE*) 20 Mg Tablet 60 MG ORAL DAILY, #12 TAB Prov: KATIE STALLWORTH M.D. 10/17/16 Albuterol Sulfate* (ALBUTEROL SULFATE MDI*) 8.5 Gm Hfa.aer.ad 2 PUFF INH Q4H Y for cough/wheezing, #1 EA 0 Refills Prov: KATIE STALLWORTH M.D. 10/17/16 Patient Instructions: Upper Respiratory Infection, Adult Additional Instructions: Followup with your DrKelby in 7 days. Increase fluid. Saltwater gargle. Return if worse. KATIE STALLWORTH M.D. Oct 17, 2016 21:15
[2016-10-17 21:21] VITALS: BP 137/73
== END 2016-10-17 21:21 | disposition home or self-care (01) ==
LOC: EMR 21:20
DX: R07.0 Pain in throat (principal); R05 Cough; R09.81 Nasal congestion; J45.909 Unspecified asthma, uncomplicated
CPT/HCPCS: 99284

== ENCOUNTER 2017-01-30 19:37 | Emergency (ER) | payer MEDICAID, OTHER ==
[~2017-01-30] VITALS: Ht 170.2 cm; Wt 95.3 kg
[~2017-01-30 19:37] MED LIST changes: +NORETHINDRONE0.35 MG PO
[2017-01-30 19:49] VITALS: BP 124/74
[2017-01-30] MEDS: Ipratropium 0.02% Inh Soln 2.5ml UD HHN SCH ×3 (20:08→20:34)
[2017-01-30] MEDS: Albuterol ud Inhalation HHN SCH ×3 (20:08→20:34)
[2017-01-30] MEDS ORDERED: PROAIR HFA8.5 GM INH (20:54)
[2017-01-30] MEDS ORDERED: ADVAIR 250-501 EACH INH (20:54)
[2017-01-30 21:05] VITALS: BP 122/66
--- NOTE | 2017-01-30 21:34 | Emergency Room Report ---
History of Present Illness General Chief Complaint: Upper Respiratory Illness Source: Patient Present Illness HPI The patient is a 31-year-old female with a history of asthma presenting for possible asthma exacerbation. She states that she has been feeling short of breath since yesterday. She states that this feels like asthma. She has been using albuterol at home which has not been helping as he usually does. Symptoms worsen night. She also has a dry cough. She denies any other symptoms including fever or chills Allergies: Coded Allergies: No Known Allergies (Unverified , 05/09/12) Patient History Past Medical History: see triage record Pertinent Family History: none Last Menstrual Period: 3 months ago Now: No : 0 Reviewed Nursing Documentation: PMH: Agreed, PSxH: Agreed Nursing Documentation-PMH Hx Asthma: Yes Review of Systems All Other Systems: negative except mentioned in HPI Physical Exam Vital Signs Date Time Temp Pulse Resp B/P (MAP) Pulse Ox O2 Delivery O2 Flow Rate FiO2 01/30/17 19:38 97.7 89 18 126/78 96 Room Air Sp02 EP Interpretation: reviewed, normal General Appearance: no apparent distress, alert, GCS 15, non-toxic Head: normocephalic, atraumatic Eyes: bilateral eye normal inspection, bilateral eye PERRL ENT: hearing grossly normal, normal pharynx, no angioedema, normal voice, uvula midline Neck: full range of motion, supple/symm/no masses Respiratory: chest non-tender, no respiratory distress, no accessory muscle use , decreased breath sounds, speaking full sentences, wheezing - mild Cardiovascular #1: regular rate, rhythm, no edema Musculoskeletal: back normal, gait/station normal, normal range of motion, non- tender Neurologic: alert, oriented x3, responsive, motor strength/tone normal, sensory intact, speech normal Psychiatric: judgement/insight normal, memory normal, mood/affect normal, no suicidal/homicidal ideation Skin: normal color, no rash, warm/dry, well hydrated Medical Decision Making PA Attestation Dr. Thurman is my supervising physician. Patient management was discussed with my supervising physician Diagnostic Impression: Primary Impression: Asthma exacerbation Qualified Codes: J45.21 - Mild intermittent asthma with (acute) exacerbation ER Course The patient is a 31-year-old female with a history of asthma presenting for possible asthma exacerbation Differential diagnoses considered but not limited to: Asthma exacerbation, bronchitis, pneumonia, anxiety Physical exam: Vitals within normal limits. No apparent distress HEENT exam is unremarkable Lungs: Decreased breath sounds bilaterally. Chest is nontender. No respiratory distress. No accessory muscle use. The patient was given a breathing treatment and is feeling much better. Lungs sounds have improved Patient is discharged home with a prescription for albuterol and a LABA and will followup with PMD. ER precautions are given Last Vital Signs Date Time Temp Pulse Resp B/P (MAP) Pulse Ox O2 Delivery O2 Flow Rate FiO2 01/30/17 21:05 18 122/66 96 Room Air 01/30/17 20:49 86 01/30/17 19:49 97.8 Status: improved Disposition: HOME, SELF-CARE Condition: Improved Scripts Fluticasone/Salmeterol (Advair 250-50 Diskus) 1 Each Blst.w.dev 1 PUFF INH EVERY 12 HOURS, #1 EA Prov: LETI PHELAN 01/30/17 Albuterol Sulfate* (PROAIR HFA*) 8.5 Gm Hfa.aer.ad 2 PUFFS INH Q6H, #8.5 GM 0 Refills Prov: LETI PHELAN 01/30/17 Referrals: [facility],REFERRING (PCP) Patient Instructions: Asthma, Adult, Asthma Attack Prevention Additional Instructions: I discussed my findings with the patient. All questions and concerns have been answered. Treatment and medication compliance have been addressed. I advised the patient that they need to follow up with PMD in 3-5 days. Return to ED if symptoms worsen, new symptoms arise, or if needed for any reason. Patient verbalized understanding of discharge instructions. LETI PHELAN Jan 30, 2017 21:34
== END 2017-01-30 21:06 | disposition home or self-care (01) ==
LOC: EMR 21:04
DX: J45.901 Unspecified asthma with (acute) exacerbation (principal)
CPT/HCPCS: 94640; 94664; 99284

== ENCOUNTER 2017-05-07 16:01 | Emergency (ER) | payer MEDICAID ==
[~2017-05-07] VITALS: Ht 170.2 cm; Wt 104.3 kg
[~2017-05-07 16:01] MED LIST changes: +ADVAIR 250-501 EACH INH; +PROAIR HFA8.5 GM INH
[2017-05-07] MEDS ORDERED: COLACE100 MG ORAL (16:42)
[2017-05-07] MEDS ORDERED: LIDOCAINE700 M1 TP (16:42)
[2017-05-07] MEDS ORDERED: IBUPROFEN600 MG ORAL (16:42)
--- NOTE | 2017-05-07 16:42 | Emergency Room Report ---
History of Present Illness General Chief Complaint: Pain Source: Patient Present Illness HPI 31 yo female patient presents to ER complaining of RLQ pain for a few days. Reports hx of endometriosis; states this feels like that pain; reports usually taking Ibuprofen for pain; states last took a few days ago; currently taking [place] for pain following hand surgery; last dosage of [place] at 5AM. Patient denies pain urination, frequency, urgency. LMP was normal, denies vaginal bleeding. Denies nausea, vomiting, diarrhea. Reports constipation; reports last BM was yesterday. Denies fever, chest pain, SOB. Allergies: Coded Allergies: No Known Allergies (Unverified , 05/09/12) Patient History Last Menstrual Period: 04/30/2017 Now: No Reviewed Nursing Documentation: PMH: Agreed, PSxH: Agreed Nursing Documentation-PMH Past Medical History: No History, Except For Hx Asthma: Yes Review of Systems All Other Systems: negative except mentioned in HPI Physical Exam Vital Signs Date Time Temp Pulse Resp B/P (MAP) Pulse Ox O2 Delivery O2 Flow Rate FiO2 05/07/17 16:15 98.7 87 16 110/66 95 Room Air 98.8 Sp02 EP Interpretation: reviewed, normal General Appearance: well appearing, alert, GCS 15, mild distress Head: normocephalic, atraumatic Eyes: bilateral eye normal inspection, bilateral eye PERRL ENT: hearing grossly normal, normal pharynx, no angioedema, normal voice, uvula midline, moist mucus membranes Neck: full range of motion Respiratory: lungs clear, normal breath sounds, no rhonchi, no respiratory distress, no accessory muscle use, no wheezing, speaking full sentences Cardiovascular #1: regular rate, rhythm, no edema Gastrointestinal: non tender, soft, no mass, non-distended, no guarding, no rebound, other - negative McBurney's point tenderness, Negative Rovsing, negative obturator sign Genitourinary: no CVA tenderness, deferred Musculoskeletal: back normal, digits/nails normal, gait/station normal, normal range of motion, non-tender Neurologic: alert, oriented x3, responsive, motor strength/tone normal, sensory intact Psychiatric: mood/affect normal Skin: no rash Lymphatic: no adenopathy Medical Decision Making PA Attestation Dr. Steen is my supervising Physician whom patient management has been discussed with. Diagnostic Impression: Primary Impression: Hx of endometriosis Additional Impression: Abdominal pain ER Course Pt. presents to the ED c/o abdominal pain. Ddx considered but are not limited to endometriosis, UTI, constipation. Low suspicion for appendicitis, ovarian torsion, does not require imaging at this time. Vital signs: are WNL, pt. is afebrile Ordered UA, urine and pain medication. ER COURSE: UA negative for nitrites, many squamous epithelial cells, sample likely contaminated. Patient asx for urinary tract sx. Does not require treatment for UTI at this time. Urine negative. Discussed results with patient. Patient reports feeling better following treatment with pain medication. Informed patient to follow up with primary care provider for further treatment and monitoring for pain relief related to endometriosis. Will provide patient with medication for constipation symptoms. DISCHARGE: Rx provided for Colace Rx provided for Ibuprofen Rx provided for Lidocaine patches At this time pt is stable for d/c to home. Patient is resting comfortably, in no acute distress, nontoxic appearing, talking without difficulty. Patient to take medications as instructed Will provide with patient care instructions and any necessary prescriptions. Care plan and follow-up instructions provided. Patient instructed to follow-up with primary care provider in 3 - 5 days. Patient questions asked and answered. Patient reports understanding and agreement to treatment plan. ER precautions given. Patient instructed to return to ER immediately for any new or worsening of symptoms including but not limited to increasing SOB, persistent fever, worsening of abdominal pain. Labs Test 05/07/17 16:58 Urine Color Pale yellow Urine Appearance Cloudy Urine pH 8 (4.5-8.0) Urine Specific [place] 1.015 (1.005-1.035) Urine Protein Negative (NEGATIVE) Urine Glucose (UA) Negative (NEGATIVE) Urine Ketones Negative (NEGATIVE) Urine Occult Blood Negative (NEGATIVE) Urine Nitrite Negative (NEGATIVE) Urine Bilirubin Negative (NEGATIVE) Urine Urobilinogen Normal MG/DL (0.0-1.0) Urine Leukocyte Esterase 1+ (NEGATIVE) Urine RBC 0-2 /HPF (0 - 2) Urine WBC 2-4 /HPF (0 - 2) Urine Squamous Epithelial Cells Many /LPF (NONE/OCC) Urine Bacteria Few /HPF (NONE) Urine HCG, Qualitative Negative Last Vital Signs Date Time Temp Pulse Resp B/P (MAP) Pulse Ox O2 Delivery O2 Flow Rate FiO2 3/1/18 16:15 98.7 87 16 110/66 95 Room Air 98.8 Disposition: HOME, SELF-CARE Condition: Stable Scripts Lidocaine (Lidocaine) 1 Each Adh..patch 700 MG TP BID for 5 Days, #10 PATCH Prov: Mathew Shaw 05/07/17 Docusate Sodium* (COLACE*) 100 Mg Capsule 100 MG ORAL THREE TIMES A DAY for 5 Days, #20 CAP Prov: Mathew Shaw 05/07/17 Ibuprofen* (MOTRIN*) 600 Mg Tablet 600 MG ORAL Q8H Y for For Pain, #30 TAB 0 Refills Prov: Mathew Shaw 05/07/17 Patient Instructions: Endometriosis Additional Instructions: Followup with primary care provider in 3 -5 days for further treatment and referral. Drink plenty of fluids. Take medications as directed. Patient questions asked and answered. ER precautions given, patient instructed to return to ER immediately for any new or worsening of symptoms. Mathew Shaw May 07, 2017 16:42
[2017-05-07] MEDS ORDERED: Ketorolac 30mg Inj IM ONE (16:45)
[2017-05-07 17:11] LABS: APPEARANCE,URINE CLOUDY; BILIRUBIN, URINE NEGATIVE (NEGATIVE); COLOR,URINE PALE YELLOW; GLUCOSE, URINE (UA) NEGATIVE (NEGATIVE); KETONES,URINE NEGATIVE (NEGATIVE); LEUKOCYTE ESTERASE ,URINE 1+ (NEGATIVE); NITRITE,URINE NEGATIVE (NEGATIVE); PH,URINE 8 (4.5-8.0); PROTEIN,URINE NEGATIVE (NEGATIVE); UROBILINOGEN,URINE NORMAL MG/DL (0.0-1.0)
[2017-05-07 17:32] VITALS: BP 121/79
== END 2017-05-07 17:30 | disposition home or self-care (01) ==
LOC: EMR 17:25
DX: R10.31 Right lower quadrant pain (principal); Z87.42 Personal history of other diseases of the female genital tract; J45.909 Unspecified asthma, uncomplicated
CPT/HCPCS: 81003; 81025; 96372; 99284; J1885

== ENCOUNTER 2017-06-01 21:36 | Emergency (ER) | payer MEDICAID ==
[~2017-06-01] VITALS: Ht 170.2 cm; Wt 90.7 kg
[~2017-06-01 21:36] MED LIST changes: +COLACE100 MG ORAL; +LIDOCAINE700 M1 TP
--- NOTE | 2017-06-01 21:51 | Emergency Room Report ---
History of Present Illness General Chief Complaint: Abdominal Pain Source: Patient Present Illness HPI Is a 31-year-old female with a history of endometriosis, diagnosed laparoscopically. She presents with left lower quadrant/pelvic pain that onset today. Initially was cramping and sharp. But in the last 2 hours more severe. No fever chills but no nausea no vomiting. She just finished her menstrual flow 2 days ago. No discharge. No urinary complaint. Pain is 10 out of 10. Allergies: Coded Allergies: No Known Allergies (Unverified , 05/09/12) Patient History Past Medical History: see triage record, old chart reviewed, asthma Past Surgical History: none Pertinent Family History: none Social History: Denies: smoking Last Menstrual Period: 05/29/17 Now: No Immunizations: other Reviewed Nursing Documentation: PMH: Agreed; PSxH: Agreed Nursing Documentation-PMH Hx Asthma: Yes Review of Systems Eye: Denies: eye pain, blurred vision ENT: Denies: ear pain, nose congestion, throat swelling Respiratory: Denies: cough, shortness of breath Cardiovascular: Denies: chest pain, palpitations Gastrointestinal: Reports: abdominal pain; Denies: diarrhea, nausea, vomiting Musculoskeletal: Denies: back pain, joint pain Skin: Denies: rash Neurological: Denies: headache, numbness Endocrine: Denies: increased thirst, increased urine Hematologic/Lymphatic: Denies: easy bruising All Other Systems: negative except mentioned in HPI Physical Exam Vital Signs Date Time Temp Pulse Resp B/P (MAP) Pulse Ox O2 Delivery O2 Flow Rate FiO2 06/01/17 21:39 98.4 86 18 124/71 98 Room Air 98.4 vitals normal Sp02 EP Interpretation: reviewed, normal General Appearance: well appearing, no apparent distress, alert Head: normocephalic, atraumatic Eyes: bilateral eye PERRL, bilateral eye EOMI ENT: hearing grossly normal, normal pharynx Neck: full range of motion, supple, no meningismus Respiratory: chest non-tender, lungs clear, normal breath sounds Cardiovascular #1: regular rate, rhythm, no murmur Gastrointestinal: normal bowel sounds, no mass, no organomegaly, no bruit, non- distended, tenderness - left lower quadrant Musculoskeletal: back normal, gait/station normal, normal range of motion Psychiatric: mood/affect normal Skin: warm/dry Medical Decision Making Diagnostic Impression: Primary Impression: Pelvic pain Additional Impressions: Hx of endometriosis UTI (urinary tract infection) Qualified Codes: N30.00 - Acute cystitis without hematuria ER Course Is a 31-year-old female who presents with pelvic pain. No evidence of torsion or ectopic. No evidence of acute abdomen. Better now. His most likely exacerbation of her endometriosis. We'll discharge home. CT/MRI/US Diagnostic Results CT/MRI/US Diagnostic Results : Imaging Test Ordered: CT abdomen and pelvis Impression negative per radiologist Last Vital Signs Date Time Temp Pulse Resp B/P (MAP) Pulse Ox O2 Delivery O2 Flow Rate FiO2 06/01/17 21:39 98.4 86 18 124/71 98 Room Air 98.4 Status: improved Disposition: HOME, SELF-CARE Condition: Stable Scripts Cephalexin* (KEFLEX*) 500 Mg Capsule 500 MG ORAL TID, #21 CAP 0 Refills Prov: KATIE STALLWORTH M.D. 06/01/17 Hydrocodone/Acetaminophen 5-325* (HYDROCODONE/ACETAMINOPHEN 5-325*) 1 Each Tablet 1 TAB ORAL Q4H PRN for For Pain, #20 TAB 0 Refills Prov: KATIE STALLWORTH M.D. 06/01/17 Patient Instructions: Abdominal Pain, Adult Additional Instructions: Follow-up with your DrKelby in 2 to 3 days if not better. Return if worse. KATIE STALLWORTH M.D. Jun 01, 2017 21:51
[2017-06-01 21:55] VITALS: BP 124/71
[2017-06-01] MEDS ORDERED: HYDROmorphone 1mg/ml Carpuject IM ONE (22:00)
[2017-06-01 22:04] LABS: APPEARANCE,URINE SLIGHTLY CLOUDY; BILIRUBIN, URINE NEGATIVE (NEGATIVE); COLOR,URINE PALE YELLOW; GLUCOSE, URINE (UA) NEGATIVE (NEGATIVE); KETONES,URINE NEGATIVE (NEGATIVE); LEUKOCYTE ESTERASE ,URINE 3+ (NEGATIVE); NITRITE,URINE NEGATIVE (NEGATIVE); PH,URINE 6.5 (4.5-8.0); PROTEIN,URINE 1+ (NEGATIVE); UROBILINOGEN,URINE 1 MG/DL (0.0-1.0)
[2017-06-01] MEDS ORDERED: HYDROCODON-ACE1 EA15 ORAL (22:57)
[2017-06-01] MEDS ORDERED: KEFLEX500 MG ORAL (22:57)
[2017-06-01 23:00] VITALS: BP 120/68
[2017-06-01] MEDS ORDERED: Cephalexin 500mg cap ORAL ONE (23:00)
--- NOTE | 2017-06-02 09:59 | Diagnostic Imaging Report ---
Indication: Left lower quadrant pain Technique: Spiral acquisitions obtained through the abdomen and pelvis. No oral contrast utilized, per emergency room physician request No IV contrast utilized, per referring physician request.. Multiplanar reconstructions were generated. Total dose length product 1047.34 mGycm. CTDIvol(s) 18.6 mGy. Dose reduction achieved using automated exposure control Comparison: 06/10/2016 Findings: The appendix is normal. No evidence of diverticulosis or diverticulitis. No small bowel distention. No free or loculated intraperitoneal gas or fluid. The distal esophagus, stomach, duodenum are unremarkable. Lack of IV contrast limits assessment of the solid organs. 1 cm diameter fluid attenuation lesion, presumably a cyst or bile hamartomas, is again demonstrated in segment 7 of the liver. The gallbladder, bile ducts, pancreas, spleen, adrenals are unremarkable. No renal or ureteral calculi, hydronephrosis, or hydroureter. No retroperitoneal or mesenteric mass or adenopathy. No pelvic mass or adenopathy. The included lung bases are clear. The bones are unremarkable. Impression: Essentially unremarkable exam. No acute abnormality demonstrated. Incidental finding of right lobe liver cyst. This agrees with the preliminary interpretation provided overnight by [facility] teleradiology service. The CT scanner at [facility] is accredited by the [employer] and the scans are performed using protocols designed to limit radiation exposure to as low as reasonably achievable to attain images of sufficient resolution adequate for diagnostic evaluation.
== END 2017-06-01 23:00 | disposition home or self-care (01) ==
LOC: EMR 21:45
DX: N30.00 Acute cystitis without hematuria (principal); R10.2 Pelvic and perineal pain; N80.9 Endometriosis, unspecified; J45.909 Unspecified asthma, uncomplicated
CPT/HCPCS: 74176; 81003; 81025; 87086; 96372; 99284; J1170

== ENCOUNTER 2017-06-07 21:03 | Emergency (ER) | payer MEDICAID, OTHER ==
[~2017-06-07] VITALS: Ht 170.2 cm; Wt 90.7 kg
[~2017-06-07 21:03] MED LIST changes: +HYDROCODON-ACE1 EA15 ORAL; +KEFLEX500 MG ORAL
[2017-06-07] MEDS ORDERED: Ketorolac 60mg Inj IM ONE (21:15)
--- NOTE | 2017-06-07 21:19 | Emergency Room Report ---
History of Present Illness General Chief Complaint: Abdominal Pain Source: Patient Present Illness HPI Is a 31-year-old female with history of endometriosis confirmed laparoscopically. I saw her for 5 days ago for same complaint. She presents with left pelvic pain. Onset was gradual. Pain is sharp in nature. No fever chills but no nausea no vomiting. Similar in the past but worse. CT scan then was unremarkable. Urinalysis showed possible UTI but culture showed contamination. She was not getting any better on pain medication. She came back for the same thing. Worse with movement. Denies any other complaint. Allergies: Coded Allergies: No Known Allergies (Unverified , 05/09/12) Patient History Past Medical History: see triage record, old chart reviewed Past Surgical History: other Pertinent Family History: none Social History: Denies: smoking Last Menstrual Period: 2 weeks ago Now: No Immunizations: other Reviewed Nursing Documentation: PMH: Agreed; PSxH: Agreed Nursing Documentation-PMH Hx Asthma: Yes Review of Systems Eye: Denies: eye pain, blurred vision ENT: Denies: ear pain, nose congestion, throat swelling Respiratory: Denies: cough, shortness of breath Cardiovascular: Denies: chest pain, palpitations Gastrointestinal: Reports: abdominal pain; Denies: diarrhea, nausea, vomiting Musculoskeletal: Denies: back pain, joint pain Skin: Denies: rash Neurological: Denies: headache, numbness Endocrine: Denies: increased thirst, increased urine Hematologic/Lymphatic: Denies: easy bruising All Other Systems: negative except mentioned in HPI Physical Exam Vital Signs Date Time Temp Pulse Resp B/P (MAP) Pulse Ox O2 Delivery O2 Flow Rate FiO2 06/07/17 21:06 98.3 74 16 118/68 97 Room Air 98.2 vitals normal Sp02 EP Interpretation: reviewed, normal General Appearance: well appearing, no apparent distress, alert Head: normocephalic, atraumatic Eyes: bilateral eye PERRL, bilateral eye EOMI ENT: hearing grossly normal, normal pharynx Neck: full range of motion, supple, no meningismus Respiratory: chest non-tender, lungs clear, normal breath sounds Cardiovascular #1: regular rate, rhythm, no murmur Gastrointestinal: normal bowel sounds, no mass, no organomegaly, no bruit, non- distended, tenderness - left lower pelvis Musculoskeletal: back normal, gait/station normal, normal range of motion Psychiatric: mood/affect normal Skin: warm/dry Medical Decision Making Diagnostic Impression: Primary Impression: Pelvic pain Additional Impression: Ovarian cyst Qualified Codes: N83.202 - Unspecified ovarian cyst, left side ER Course Patient presents with pelvic pain. Ultrasound only showed a small left ovarian cyst. No evidence of torsion. Patient pain is better controlled now. We'll discharge home. CT/MRI/US Diagnostic Results CT/MRI/US Diagnostic Results : Imaging Test Ordered: US pelvic Impression Read by radiologist. small left ovarian cyst. Last Vital Signs Date Time Temp Pulse Resp B/P (MAP) Pulse Ox O2 Delivery O2 Flow Rate FiO2 06/07/17 21:06 98.3 74 16 118/68 97 Room Air 98.2 Status: improved Disposition: HOME, SELF-CARE Condition: Stable Patient Instructions: Abdominal Pain, Adult Additional Instructions: follow-up your doctor in days. Return if worse. KATIE STALLWORTH M.D. Jun 07, 2017 21:19
[2017-06-07 21:25] VITALS: BP 118/68
[2017-06-07] MEDS ORDERED: Ketorolac 30mg Inj IV ONE (21:30)
[2017-06-07 22:00] LABS: BASOPHILS % (AUTO) 1.2 % (0.0-2.0); EOSINOPHILS % (AUTO) 3.2 % (0.0-3.0); HEMATOCRIT 38.6 % (37.0-47.0); HEMOGLOBIN 12.8 G/DL (12.0-16.0); LYMPHOCYTES % (AUTO) 34.7 % (20.0-45.0); MEAN CORPUSCULAR VOLUME 89 FL (80-99); MONOCYTES % (AUTO) 10.4 % (1.0-10.0); NEUTROPHILS % (AUTO) 50.4 % (45.0-75.0); PLATELET COUNT 274 K/UL (150-450); RED BLOOD COUNT 4.33 M/UL (4.20-5.40); RED CELL DISTRIBUTION WIDTH 11.8 % (11.6-14.8); WHITE BLOOD COUNT 7.5 K/UL (4.8-10.8)
[2017-06-07 22:49] LABS: BLOOD UREA NITROGEN 12 mg/dL (7-18); CALCIUM 9.2 MG/DL (8.5-10.1); CARBON DIOXIDE 26 MMOL/L (21-32); CREATININE 0.9 MG/DL (0.55-1.30)
[2017-06-07 23:18] VITALS: BP 122/53
[2017-06-07] MEDS ORDERED: Morphine Sulfate 4mg/ml Inj IVP ONE (23:30)
[2017-06-07 23:45] LABS: APPEARANCE,URINE CLOUDY; BILIRUBIN, URINE NEGATIVE (NEGATIVE); COLOR,URINE PALE YELLOW; GLUCOSE, URINE (UA) NEGATIVE (NEGATIVE); KETONES,URINE NEGATIVE (NEGATIVE); LEUKOCYTE ESTERASE ,URINE 1+ (NEGATIVE); NITRITE,URINE NEGATIVE (NEGATIVE); PH,URINE 7 (4.5-8.0); PROTEIN,URINE 1+ (NEGATIVE); UROBILINOGEN,URINE 1 MG/DL (0.0-1.0)
[2017-06-08 00:15] VITALS: BP 114/68
[2017-06-08 00:20] VITALS: BP 114/68
[2017-06-08 06:48] LABS: CHLORIDE 106 MMOL/L (98-107); POTASSIUM 4.5 MMOL/L (3.5-5.1); SODIUM 141 MMOL/L (136-145)
[2017-06-08 06:50] LABS: ANION GAP 9 mmol/L (5-15)
--- NOTE | 2017-06-08 14:28 | Diagnostic Imaging Report ---
Indication: Abdominal and pelvic pain Technique: Transabdominal and transvaginal images Comparison: 03/17/2016. Also CT of 06/01/2017 Findings: Uterus measures 7.1 cm length by 4.3 cm AP. Endometrium measures 9 mm thick. No myometrial abnormality. Left ovary measures 22 mm in length. The right ovary measures 18 mm in length. No adnexal mass. No free cul-de-sac fluid. Previously demonstrated hemorrhagic left ovarian cyst is no longer evident. Impression: Negative
== END 2017-06-08 00:20 | disposition home or self-care (01) ==
LOC: EMR 21:35
DX: R10.2 Pelvic and perineal pain (principal); N83.202 Unspecified ovarian cyst, left side; J45.909 Unspecified asthma, uncomplicated
CPT/HCPCS: 36415; 76830; 76856; 80048; 81003; 81025; 85025; 87086; 87181; 96374; 96375; 99284; J1885; J2270

== ENCOUNTER 2017-08-04 02:22 | Emergency (ER) | payer MEDICAID ==
[~2017-08-04] VITALS: Ht 170.2 cm; Wt 90.7 kg
[2017-08-04 02:40] VITALS: BP 130/73
[2017-08-04] MEDS ORDERED: IBUPROFEN600 MG ORAL (02:42)
[2017-08-04] MEDS ORDERED: CEPHALEXIN500 MG ORAL (02:42)
[2017-08-04] MEDS ORDERED: ACYCLOVIR400 MG ORAL (02:42)
[2017-08-04 02:51] VITALS: BP 130/73
--- NOTE | 2017-08-04 03:18 | Emergency Room Report ---
History of Present Illness General Chief Complaint: Skin Rash/Abscess Source: Patient Present Illness HPI Patient presents with complaints of rash on the left vaginal region reports that she has felt discomfort for the past 2 days Denies any itching Denies any vaginal discharge Patient is sexually active with her boyfriend Denies any dysuria frequency Denies any abdominal pain Allergies: Coded Allergies: No Known Allergies (Unverified , 05/09/12) Patient History Past Medical History: see triage record Pertinent Family History: none Last Menstrual Period: july 25 Now: No Reviewed Nursing Documentation: PMH: Agreed; PSxH: Agreed Nursing Documentation-PMH Hx Asthma: Yes Review of Systems All Other Systems: negative except mentioned in HPI Physical Exam Vital Signs Date Time Temp Pulse Resp B/P (MAP) Pulse Ox O2 Delivery O2 Flow Rate FiO2 08/04/17 02:30 98.2 83 18 130/73 98 Room Air 98.2 Sp02 EP Interpretation: reviewed, normal General Appearance: well appearing, no apparent distress Head: normocephalic, atraumatic Eyes: bilateral eye PERRL, bilateral eye EOMI ENT: normal pharynx, no angioedema Neck: supple Respiratory: lungs clear Cardiovascular #1: regular rate, rhythm, no edema Gastrointestinal: non tender, soft Genitourinary: other - On the left Lebora major at the mid point, there is a lesion, appears somewhat irregular, central blister formation no obvious fluctuance Musculoskeletal: normal inspection Neurologic: alert, oriented x3, responsive Skin: other - As above Lymphatic: no adenopathy Medical Decision Making Diagnostic Impression: Primary Impression: Rash and other nonspecific skin eruption ER Course Patient's lesion has multiple differentials considered Including but not limited to folliculitis, contact dermatitis, other pathology such as herpetic lesion also considered Patient is provided with medications She has follow-up tomorrow with her nipple maker and requires close outpatient follow-up Last Vital Signs Date Time Temp Pulse Resp B/P (MAP) Pulse Ox O2 Delivery O2 Flow Rate FiO2 08/04/17 02:51 98.2 83 18 130/73 98 Room Air 208.8 Status: improved Disposition: HOME, SELF-CARE Condition: Stable Scripts Cephalexin* (KEFLEX*) 500 Mg Capsule 500 MG ORAL EVERY 6 HOURS for 7 Days, CAP Prov: Annamarie Werner DO 08/04/17 Ibuprofen* (MOTRIN*) 600 Mg Tablet 600 MG ORAL Q8H PRN for For Pain, #20 TAB 0 Refills Prov: Annamarie Werner DO 08/04/17 Acyclovir* (ACYCLOVIR*) 400 Mg Tablet 400 MG ORAL FIVE TIMES A DAY for 7 Days, TAB Prov: Annamarie Werner DO 08/04/17 Referrals: [facility],REFERRING (PCP) Patient Instructions: Rash, Folliculitis Additional Instructions: As discussed, the lesion is concerning for possible STD type infection as well. Please follow-up with your physician tomorrow for further follow-up and reevaluation Annamarie Werner DO August 04, 2017 03:18
== END 2017-08-04 02:52 | disposition home or self-care (01) ==
LOC: EMR 02:35
DX: R21 Rash and other nonspecific skin eruption (principal); J45.909 Unspecified asthma, uncomplicated
CPT/HCPCS: 99284

== ENCOUNTER 2017-09-01 05:02 | Emergency (ER) | payer MEDICAID ==
[~2017-09-01] VITALS: Ht 170.2 cm; Wt 90.7 kg
[~2017-09-01 05:02] MED LIST changes: +ACYCLOVIR400 MG ORAL; +CEPHALEXIN500 MG ORAL
[2017-09-01 05:28] VITALS: BP 105/70
[2017-09-01] MEDS ORDERED: METRONIDAZOLE500 MG ORAL (05:37)
--- NOTE | 2017-09-01 05:38 | Emergency Room Report ---
History of Present Illness General Chief Complaint: Vaginal Source: Patient Present Illness HPI Is a 31-year-old female with no cerumen past medical history. She presents with chief complaint of vaginal irritation. She was seen here and was diagnosed with possible herpes that she has some irritation in the vaginal area. She saw her doctor for follow-up. She said she did some scraping and said there is no herpes. She also did a Pap smear and said that she had bacteria. She was placed on MetroGel and also fluocinonide. When she use the second cream and he was very irritating and painful. His been ongoing for last couple days. Denies any fever chills but no nausea no vomiting. No discharge. Allergies: Coded Allergies: No Known Allergies (Unverified , 05/09/12) Patient History Past Medical History: see triage record, old chart reviewed Past Surgical History: other Pertinent Family History: none Social History: Denies: smoking Last Menstrual Period: August 18 Now: No Immunizations: other Reviewed Nursing Documentation: PMH: Agreed; PSxH: Agreed Nursing Documentation-PMH Hx Asthma: Yes Review of Systems Eye: Denies: eye pain, blurred vision ENT: Denies: ear pain, nose congestion, throat swelling Respiratory: Denies: cough, shortness of breath Cardiovascular: Denies: chest pain, palpitations Gastrointestinal: Denies: abdominal pain, diarrhea, nausea, vomiting Musculoskeletal: Denies: back pain, joint pain Skin: Denies: rash Neurological: Denies: headache, numbness Endocrine: Denies: increased thirst, increased urine Hematologic/Lymphatic: Denies: easy bruising All Other Systems: negative except mentioned in HPI Physical Exam Vital Signs Date Time Temp Pulse Resp B/P (MAP) Pulse Ox O2 Delivery O2 Flow Rate FiO2 09/01/17 05:06 97.7 68 18 105/70 99 Room Air 97.7 vitals normal Sp02 EP Interpretation: reviewed, normal General Appearance: well appearing, no apparent distress, alert Head: normocephalic, atraumatic Eyes: bilateral eye PERRL, bilateral eye EOMI ENT: hearing grossly normal, normal pharynx Neck: full range of motion, supple, no meningismus Respiratory: chest non-tender, lungs clear, normal breath sounds Cardiovascular #1: regular rate, rhythm, no murmur Gastrointestinal: normal bowel sounds, non tender, no mass, no organomegaly, no bruit, non-distended Genitourinary: other - Vaginal exam done with Harley female RN, as records coordinator. External exam normal. Internal exam show redness and irritation to the vaginal wall. No discharge. Musculoskeletal: back normal, gait/station normal, normal range of motion Neurologic: alert, oriented x3 Psychiatric: mood/affect normal Skin: warm/dry Medical Decision Making Diagnostic Impression: Primary Impression: Vaginitis Qualified Codes: N76.0 - Acute vaginitis ER Course Patient with an acute vaginitis. Most likely secondary to irritation from the steroid cream. I suspect that her doctor meant to Rx fluconazole. I told patient to stop using it. Because she has blood cell of bacterial vaginosis confirmed by her doctor, we'll put her on Flagyl. No evidence of herpes. No evidence of any discharge. Last Vital Signs Date Time Temp Pulse Resp B/P (MAP) Pulse Ox O2 Delivery O2 Flow Rate FiO2 09/01/17 05:06 97.7 68 18 105/70 99 Room Air 97.7 Status: unchanged Disposition: HOME, SELF-CARE Condition: Stable Scripts Metronidazole* (FLAGYL*) 500 Mg Tablet 500 MG ORAL BID, #14 TAB Prov: KATIE STALLWORTH M.D. 09/01/17 Additional Instructions: stop using the ointment. with your doctor to check if that is the right one. Return if symptoms worsen. KATIE STALLWORTH M.D. Sep 01, 2017 05:38
[2017-09-01 05:40] VITALS: BP 0/0
== END 2017-09-01 05:40 | disposition home or self-care (01) ==
LOC: EMR 05:14
DX: N76.0 Acute vaginitis (principal); J45.909 Unspecified asthma, uncomplicated
CPT/HCPCS: 99283

== ENCOUNTER 2017-09-24 15:32 | Emergency (ER) | payer MEDICAID ==
[~2017-09-24] VITALS: Ht 170.2 cm; Wt 90.7 kg
[~2017-09-24 15:32] MED LIST changes: +METRONIDAZOLE500 MG ORAL
--- NOTE | 2017-09-24 16:22 | Emergency Room Report ---
History of Present Illness General Chief Complaint: Pain Source: Patient Present Illness HPI 31 YO Female presents to the ED c/o left adnexal pain that is 10/10 in severity since 5am today. Denies fevers, chills, nausea, vomiting, abdominal tenderness. Patient reports swelling in the left adnexal area. Patient denies vaginal discharge other than her normal menstrual cycle which she just finished yesterday. Denies . Reports history of endometriosis that required surgical treatment and had residual pain. Pt. denies trauma or fall. Denies N/V/ F/C, constipation or diarrhea. pt. denies urinary urgency, frequency, dysuria or hematuria, rashes, lesions or swollen tender lymph nodes. Pt. reports taking 600mg IBU 2x today with no relief. Allergies: Coded Allergies: No Known Allergies (Unverified , 05/09/12) Patient History Past Medical History: see triage record Past Surgical History: none Last Menstrual Period: 09/23/17 Now: No Reviewed Nursing Documentation: PMH: Agreed; PSxH: Agreed Nursing Documentation-PMH Past Medical History: No History, Except For Hx Asthma: Yes Review of Systems All Other Systems: negative except mentioned in HPI Physical Exam Vital Signs Date Time Temp Pulse Resp B/P (MAP) Pulse Ox O2 Delivery O2 Flow Rate FiO2 09/24/17 15:50 98.2 86 20 135/68 96 Room Air 98.2 Sp02 EP Interpretation: reviewed, normal General Appearance: alert, GCS 15, non-toxic, moderate distress Head: normocephalic, atraumatic ENT: hearing grossly normal, normal voice Neck: full range of motion Respiratory: lungs clear, normal breath sounds, speaking full sentences Cardiovascular #1: regular rate, rhythm Gastrointestinal: normal bowel sounds, soft, non-distended, tenderness - in the left adnexal area no llq ttp. Rectal: deferred Genitourinary: normal inspection, no CVA tenderness, other - left adnexal ttp, mild swelling noted. no LAD Musculoskeletal: back normal, gait/station normal, normal range of motion, non- tender Neurologic: alert, oriented x3, responsive, motor strength/tone normal, sensory intact, speech normal, grossly normal Psychiatric: judgement/insight normal Skin: normal color, no rash, warm/dry, well hydrated Lymphatic: no adenopathy Medical Decision Making PA Attestation Dr. Werner is my supervising Physician whom patient management has been discussed with. Diagnostic Impression: Primary Impression: Adnexal pain Additional Impression: UTI (urinary tract infection) Qualified Codes: N30.01 - Acute cystitis with hematuria ER Course 31 YO Female presents to the ED c/o left adnexal pain that is 10/10 in severity since 5am today. Denies fevers, chills, nausea, vomiting, abdominal tenderness. Patient reports swelling in the left adnexal area. Patient denies vaginal discharge other than her normal menstrual cycle which she just finished yesterday. Denies . Reports history of endometriosis that required surgical treatment and had residual pain. Pt. denies trauma or fall. Denies N/V/ F/C, constipation or diarrhea. pt. denies urinary urgency, frequency, dysuria or hematuria, rashes, lesions or swollen tender lymph nodes. Pt. reports taking 600mg IBU 2x today with no relief. Pt. presents to the ED c/o of L -sided adnexal pain, Ddx considered but are not limited to Diverticulitis, acute appy, ovarian torsion, ectopic , PID tubo-ovarian abscess, ovarian cyst. Vital signs: are WNL, pt. is afebrile H&PE are most consistent with chronic pelvic pain that pt. has been evaluated for on several previous visits. Due to presentation will r/o torsion, ectopic, and hemorrhagic cyst or TUA. stone of low suspicion. ORDERS: -UA:Positive for UTI -URINE HCG: Negative -Pelvic US Complete: No acute process, fibroid noted per US tech. - verbal report ED INTERVENTIONS: - 5mg [place] -I do not identify an emergent condition at this time. With current presentation , pt. is stable for close outpatient follow up and conservative treatment. D/ w pt. to return promptly to ED with worsening or new symptoms.- Pt. (and or responsible alliance party) verbalizes' understanding and agreement with proposed treatment plan.proposed treatment plan. DISCHARGE: At this time pt. is stable for d/c to home. Will provide printed patient care instructions, and any necessary prescriptions. Care plan and follow up instructions have been discussed with the patient prior to discharge. Labs Test 09/24/17 16:55 Urine Color Pale yellow Urine Appearance Slightly cloudy Urine pH 6.5 (4.5-8.0) Urine Specific [place] 1.010 (1.005-1.035) Urine Protein Negative (NEGATIVE) Urine Glucose (UA) Negative (NEGATIVE) Urine Ketones Negative (NEGATIVE) Urine Occult Blood 1+ (NEGATIVE) Urine Nitrite Negative (NEGATIVE) Urine Bilirubin Negative (NEGATIVE) Urine Urobilinogen Normal MG/DL (0.0-1.0) Urine Leukocyte Esterase 2+ (NEGATIVE) Urine RBC 2-4 /HPF (0 - 2) Urine WBC 5-10 /HPF (0 - 2) Urine Squamous Epithelial Cells Many /LPF (NONE/OCC) Urine Bacteria Many /HPF (NONE) Urine HCG, Qualitative Negative (NEGATIVE) CT/MRI/US Diagnostic Results CT/MRI/US Diagnostic Results : Imaging Test Ordered: Trans Abdominal US Impression Per US Tech: left ovarian cyst, normal blood flow to ovaries bilat. positive for fibroid.- Per verbal report by US tech. Last Vital Signs Date Time Temp Pulse Resp B/P (MAP) Pulse Ox O2 Delivery O2 Flow Rate FiO2 09/24/17 15:50 98.2 86 20 135/68 96 Room Air 98.2 Disposition: HOME, SELF-CARE Condition: Stable Scripts Naproxen* (NAPROXEN*) 375 Mg Tablet.dr 375 MG ORAL TWICE A DAY for 7 Days, #14 TAB Prov: Nallely Krueger 09/24/17 Hydrocodone Bit/Acetaminophen 5-325* (NORCO 5-325*) 1 Each Tablet 1 TAB ORAL Q6H PRN for For Pain, #5 TAB 0 Refills Prov: Nallely Krueger 09/24/17 Nitrofurantoin Monohyd/M-Cryst* (MACROBID 100 MG*) 100 Mg Capsule 100 MG ORAL EVERY 12 HOURS for 5 Days, #10 CAP Prov: Nallely Krueger 09/24/17 Patient Instructions: Pelvic Pain, Female, Urinary Tract Infection, Easy-to- Read Additional Instructions: Take medications as directed. Follow up with a OBGYN within 3 days, even if your symptoms have resolved. Return sooner to ED if new symptoms occur, or current symptoms become worse. - Please note that this Emergency Department Report was dictated using Dr. Jerry's [employer] tester technology software, occasionally this can lead to erroneous entry secondary to interpretation by the dictation equipment. Nallely Krueger Sep 24, 2017 16:22
[2017-09-24] MEDS ORDERED: HYDROcodone/Acetamin 7.5/325 tab ORAL ONE (16:30)
[2017-09-24 16:47] VITALS: BP 128/67
[2017-09-24 17:27] LABS: APPEARANCE,URINE SLIGHTLY CLOUDY; BILIRUBIN, URINE NEGATIVE (NEGATIVE); COLOR,URINE PALE YELLOW; GLUCOSE, URINE (UA) NEGATIVE (NEGATIVE); KETONES,URINE NEGATIVE (NEGATIVE); LEUKOCYTE ESTERASE ,URINE 2+ (NEGATIVE); NITRITE,URINE NEGATIVE (NEGATIVE); PH,URINE 6.5 (4.5-8.0); PROTEIN,URINE NEGATIVE (NEGATIVE); UROBILINOGEN,URINE NORMAL MG/DL (0.0-1.0)
[2017-09-24] MEDS ORDERED: NAPROXEN375 M2 ORAL (18:17)
[2017-09-24] MEDS ORDERED: NITROFURANTOIN100 M2 ORAL (18:17)
[2017-09-24] MEDS ORDERED: NORCO 5-325 TA1 EACH ORAL (18:17)
[2017-09-24 18:32] VITALS: BP 121/75
--- NOTE | 2017-09-25 08:38 | Diagnostic Imaging Report ---
Indication: Pelvic pain, negative urine test Technique: Transabdominal and transvaginal images Comparison: 06/07/2017 Findings: Uterus measures 7.1 cm length by 4 cm AP. Endometrium measures 10 mm thick. A few small fundal fibroids are demonstrated. There is a cervical nabothian cyst. Right ovary measures 2.8 cm length. Left ovary measures 2.8 cm length. No free cul-de-sac fluid. Bilateral ovarian Doppler flow is demonstrated. When compared to prior exam, fibroids were not evident previously. No significant change otherwise Impression: Small uterine fibroids Otherwise unremarkable
== END 2017-09-24 18:32 | disposition home or self-care (01) ==
LOC: EMR 18:13
DX: R10.2 Pelvic and perineal pain (principal); N39.0 Urinary tract infection, site not specified; J45.909 Unspecified asthma, uncomplicated; D25.9 Leiomyoma of uterus, unspecified
CPT/HCPCS: 76830; 76856; 81003; 81025; 87086; 99284

== ENCOUNTER 2018-01-20 17:53 | Emergency (ER) | payer MEDICAID ==
[~2018-01-20] VITALS: Ht 170.2 cm; Wt 97.1 kg
[~2018-01-20 17:53] MED LIST changes: +NAPROXEN375 M2 ORAL
[2018-01-20 18:50] VITALS: BP 137/71
[2018-01-20 19:10] VITALS: BP 127/67
--- NOTE | 2018-01-20 19:13 | Emergency Room Report ---
History of Present Illness General Chief Complaint: Constipation Source: Patient Present Illness HPI 32-year-old female presents to the emergency department complaining of 10 out of 10 in severity acute onset rectal pain with some bright red blood on the toilet paper after attempting to have bowel movement. Patient reports significant constipation and states that she has not been able to have a normal bowel movement for almost 10 days. Patient denies nausea, vomiting, fevers, chills or abdominal tenderness. Patient reports fullness especially fullness sensation in the rectal area. Patient reports she is only been able to pass small hard stool. Patient describes scant amount of bright red blood on the toilet paper she denies history of hemorrhoids. She reports she is able to pass gas. She states she was recently started on Lupron for endometriosis and has been getting Colace to be taken 3 times a day. Patient denies black tarry stools, history of GI bleeds, taking blood thinning medications. She reports pain is exacerbated upon attempts to have bowel movement. She reports her last menstrual period was 2 months ago however she denies . Allergies: Coded Allergies: No Known Allergies (Unverified , 05/09/12) Patient History Past Medical History: see triage record Past Surgical History: none Pertinent Family History: none Last Menstrual Period: 2 months ago Now: No Reviewed Nursing Documentation: PMH: Agreed; PSxH: Agreed Nursing Documentation-PMH Past Medical History: No History, Except For Hx Cardiac Problems: No - Endometriosis Hx Hypertension: No Hx Pacemaker: No Hx Asthma: Yes Hx COPD: No Hx Diabetes: No Hx Cancer: No Hx Gastrointestinal Problems: No Hx Dialysis: No History Of Psychiatric Problem: No Hx Neurological Problems: No Hx Cerebrovascular Accident: No Hx Seizures: No Review of Systems All Other Systems: negative except mentioned in HPI Physical Exam Vital Signs Date Time Temp Pulse Resp B/P (MAP) Pulse Ox O2 Delivery O2 Flow Rate FiO2 01/20/18 18:06 98.6 67 14 137/71 100 Room Air Sp02 EP Interpretation: reviewed, normal General Appearance: no apparent distress, alert, GCS 15, non-toxic Head: normocephalic, atraumatic Eyes: bilateral eye normal inspection, bilateral eye PERRL ENT: hearing grossly normal, normal voice Neck: full range of motion Respiratory: lungs clear, normal breath sounds, speaking full sentences Cardiovascular #1: regular rate, rhythm Gastrointestinal: normal bowel sounds, non tender, soft, non-distended, no guarding Rectal: heme negative stool, deferred, other - no evidence of hemorrhoid. no obvious rectal tear, pt. has moderate sensitivity to the outter edge of the anus. no erythema or palpable masses. Genitourinary: normal inspection Musculoskeletal: back normal, gait/station normal, normal range of motion, non- tender Neurologic: alert, oriented x3, responsive, motor strength/tone normal, sensory intact, speech normal, grossly normal Psychiatric: judgement/insight normal Skin: normal color, no rash, warm/dry, well hydrated Lymphatic: no adenopathy Medical Decision Making PA Attestation Dr. Palacios is my supervising Physician whom patient management has been discussed with. Diagnostic Impression: Primary Impression: Constipation Qualified Codes: K59.00 - Constipation, unspecified Additional Impression: Anal or rectal pain ER Course 32-year-old female presents to the emergency department complaining of 10 out of 10 in severity acute onset rectal pain with some bright red blood on the toilet paper after attempting to have bowel movement. Patient reports significant constipation and states that she has not been able to have a normal bowel movement for almost 10 days. Patient denies nausea, vomiting, fevers, chills or abdominal tenderness. Patient reports fullness especially fullness sensation in the rectal area. Patient reports she is only been able to pass small hard stool. Patient describes scant amount of bright red blood on the toilet paper she denies history of hemorrhoids. She reports she is able to pass gas. She states she was recently started on Lupron for endometriosis and has been getting Colace to be taken 3 times a day. Patient denies black tarry stools, history of GI bleeds, taking blood thinning medications. She reports pain is exacerbated upon attempts to have bowel movement. She reports her last menstrual period was 2 months ago however she denies . Ddx considered but are not limited to constipation , appendicitis, SBO, ectopic , PID, tubo-ovarian abscess, Stool impaction, Ca, constipation just to name a few. Vital signs: are WNL, pt. is afebrile H&PE are most consistent with constipation. bowl sounds are normo active. Not heme positive. no obvious hemorrhoids - she is nontoxic in appearance and otherwise in no acute distress. - low suspicion of acute abdomen at this time given patient's current presentation and history of present illness. ORDERS: Pt. declines testing and wants to sign waiver for x-ray Abdominal KUB: moderate stool noted with nonspecific bowel gas pattern. ED INTERVENTIONS: -D/w pt. Increase fluid intake, dietary changes as well as discussed new medication called lactulose that she will be placed on. Discussed with patient that if she develops fevers, nausea/vomiting, inability to pass gas, worsening or new symptoms that she needs to return promptly to the emergency department for further evaluation. Will attempt outpatient treatment and have close outpatient follow-up with her primary care provider. DISCHARGE: At this time pt. is stable for d/c to home. Will provide printed patient care instructions, and any necessary prescriptions. Care plan and follow up instructions have been discussed with the patient prior to discharge. Other X-Ray Diagnostic Results Other X-Ray Diagnostic Results : X-Ray ordered: KUB # of Views/Limited Vs Complete: 1 View Indication: Other - constipation EP Interpretation: Yes PA Xray: Interpretation reviewed, by supervising MD, and agrees with findings. Interpretation: nonspecific bowel gas, no sbo Impression: No acute disease Electronically Signed by: Nallely Krueger PA-C Last Vital Signs Date Time Temp Pulse Resp B/P (MAP) Pulse Ox O2 Delivery O2 Flow Rate FiO2 01/20/18 18:50 98.6 72 14 137/71 100 Room Air Disposition: HOME, SELF-CARE Condition: Stable Scripts Lidocaine (ANECREAM5) 15 Gm Cream..g. 1 APPLIC TP TID, #15 GM Prov: Nallely Krueger 01/20/18 Lactulose (LACTULOSE*) 20 Gm/30 Ml Solution 30 ML ORAL BID, #200 ML 0 Refills Prov: Nallely Krueger 01/20/18 Patient Instructions: Constipation, Adult Additional Instructions: Take medications as directed. Follow up with a Primary Care Provider in 3 days, even if your symptoms have resolved. --Please review list of primary care clinics, if you do not already have a primary care provider Return sooner to ED if new symptoms occur, or current symptoms become worse. - Please note that this Emergency Department Report was dictated using [employer] technology software, occasionally this can lead to erroneous entry secondary to interpretation by the dictation equipment. Nallely Krueger Jan 20, 2018 19:13
[2018-01-20] MEDS ORDERED: LACTULOSE20 GM/301 ORAL (19:17)
[2018-01-20] MEDS ORDERED: ANECREAM515 GM TP (19:17)
[2018-01-20 19:28] VITALS: BP 137/71
--- NOTE | 2018-01-21 10:45 | Diagnostic Imaging Report ---
Indication: Pain, constipation Technique: Supine view of the abdomen Comparison: 06/29/2016 Findings: Bowel gas pattern is unremarkable. No unusual masses or calcifications. Although some stool is seen in the ascending colon, fecal burden appears unremarkable. There is no significant interim change Impression: No acute process
== END 2018-01-20 19:28 | disposition home or self-care (01) ==
LOC: EMR 18:58
DX: K59.00 Constipation, unspecified (principal); K62.89 Other specified diseases of anus and rectum; J45.909 Unspecified asthma, uncomplicated
CPT/HCPCS: 74018; 99283

== ENCOUNTER 2018-04-02 05:31 | Emergency (ER) | payer MEDICAID ==
[~2018-04-02] VITALS: Ht 170.2 cm; Wt 90.7 kg
[~2018-04-02 05:31] MED LIST changes: +ANECREAM515 GM TP; +LACTULOSE20 GM/301 ORAL
[2018-04-02 05:45] VITALS: BP 138/90
--- NOTE | 2018-04-02 05:52 | NUR ---
Pt c/o constipation for 2 weeks, and Pt took castor oil but still couldn't pass. Pt states L lower abdominal pain, pain level 10/10. Pt states she doesn't eat much greens or fibers.. pt stated it feels like its squeezing on the rectal area. pt denies vomiting.
--- NOTE | 2018-04-02 06:07 | NUR ---
ED Nurse Note: william and noemi rn on bedside doing the fleet enema to pt. pt able to tolerate well. pt stated she feels a relieve after emrd put the enema. pt stated she now feels the urge to ahve bm. pt went to the cr. will continue to monitor.
[2018-04-02] MEDS ORDERED: LACTULOSE20 GM/301 ORAL (06:11)
[2018-04-02] MEDS ORDERED: FLEET ENEMA133 ML RECTAL (06:11)
--- NOTE | 2018-04-02 06:11 | Emergency Room Report ---
History of Present Illness General Chief Complaint: Constipation Source: Patient Present Illness HPI This is a 32-year-old female with a history of endometriosis and constipation. She presents with chief complaint of constipation. She said she hadn't had a bowel movement for about 2 weeks. Her bowel movements usually takes about a week and very small and hard. She try [id number] medicine without any relief. There is no fever chills but no nausea no vomiting. She has rectal pain from urge to go but unable to defecate because of the largeness of the stool. Allergies: Coded Allergies: No Known Allergies (Unverified , 05/09/12) Patient History Past Medical History: see triage record, old chart reviewed Past Surgical History: other Pertinent Family History: none Social History: Denies: smoking Last Menstrual Period: Mar 27 2018 Now: No Immunizations: other Reviewed Nursing Documentation: PMH: Agreed; PSxH: Agreed Nursing Documentation-PMH Hx Cardiac Problems: No - Endometriosis Hx Hypertension: No Hx Pacemaker: No Hx Asthma: Yes Hx COPD: No Hx Diabetes: No Hx Cancer: No Hx Gastrointestinal Problems: No Hx Dialysis: No Hx Neurological Problems: No Hx Cerebrovascular Accident: No Hx Seizures: No Review of Systems Eye: Denies: eye pain, blurred vision ENT: Denies: ear pain, nose congestion, throat swelling Respiratory: Denies: cough, shortness of breath Cardiovascular: Denies: chest pain, palpitations Gastrointestinal: Reports: constipation; Denies: abdominal pain, diarrhea, nausea, vomiting Musculoskeletal: Denies: back pain, joint pain Skin: Denies: rash Neurological: Denies: headache, numbness Endocrine: Denies: increased thirst, increased urine Hematologic/Lymphatic: Denies: easy bruising All Other Systems: negative except mentioned in HPI Physical Exam Vital Signs Date Time Temp Pulse Resp B/P (MAP) Pulse Ox O2 Delivery O2 Flow Rate FiO2 04/02/18 05:37 97.9 95 18 138/90 98 Room Air vitals normal Sp02 EP Interpretation: reviewed, normal General Appearance: well appearing, no apparent distress, alert Head: normocephalic, atraumatic Eyes: bilateral eye PERRL, bilateral eye EOMI ENT: hearing grossly normal, normal pharynx Neck: full range of motion, supple, no meningismus Respiratory: chest non-tender, lungs clear, normal breath sounds Cardiovascular #1: regular rate, rhythm, no murmur Gastrointestinal: normal bowel sounds, non tender, no mass, no organomegaly, no bruit, non-distended Rectal: other - Rectal exam done with female nurse as christian science healer. I did not palpate any hard stool. No blood. Musculoskeletal: back normal, gait/station normal, normal range of motion Neurologic: alert, oriented x3 Psychiatric: mood/affect normal Skin: warm/dry Medical Decision Making Diagnostic Impression: Primary Impression: Constipation Qualified Codes: K59.00 - Constipation, unspecified ER Course Patient with constipation. No evidence of any obstruction. She's eating drinking without a problem. She had a large bowel movement with enema. Hardin better. We'll discharge home. Last Vital Signs Date Time Temp Pulse Resp B/P (MAP) Pulse Ox O2 Delivery O2 Flow Rate FiO2 04/02/18 05:45 97.9 78 18 138/90 98 Room Air Status: improved Disposition: HOME, SELF-CARE Condition: Stable Scripts Na Phos,M-B/Na Phos,Di-Ba* (FLEET ENEMA*) 133 Ml Enema 133 ML RECTAL DAILY, #7 ML 0 Refills Prov: Luke Avila MD 04/02/18 Lactulose (LACTULOSE*) 20 Gm/30 Ml Solution 30 ML ORAL DAILY, #400 ML 0 Refills Prov: Luke Avila MD 04/02/18 Patient Instructions: Constipation, Adult Additional Instructions: Follow-up with your doctor in 7 days. Increase fluids. Increase fiber. Return if symptom worsen. Luke Avila MD Apr 02, 2018 06:11
[2018-04-02] MEDS ORDERED: Fleet's Enema 133ml RECTAL ONE (06:15)
[2018-04-02 06:25] VITALS: BP 138/90
--- NOTE | 2018-04-02 06:25 | NUR ---
ED Nurse Note: pt went out of the cr, pt stated she had 2 bm. Patient is being discharged from ED alert and oriented x4, ambulatory with a steady gait, VSS. Patient acknowledged the need to follow up with a PMD, Patient was advised to return if symptoms worsen. prescription in hand, ID band removed. pt left the ed with all the belongings.
== END 2018-04-02 06:25 | disposition home or self-care (01) ==
LOC: EMR 06:15
DX: K59.00 Constipation, unspecified (principal); J45.909 Unspecified asthma, uncomplicated
CPT/HCPCS: 99282

== ENCOUNTER 2020-01-10 15:24 | Emergency (ER) | payer MEDICAID, OTHER ==
[~2020-01-10] VITALS: Ht 170.2 cm; Wt 90.7 kg
[~2020-01-10 15:24] MED LIST changes: +FLEET ENEMA133 ML RECTAL
--- NOTE | 2020-01-10 15:45 | NUR ---
ED Nurse Note: Pt ambulated to ED from home d/t suprapubic abdominal pain that has been going on for a few days. Pt is AOx4, calm and cooperative to care, pt denies any hematuria or dysuria at this time. Pt's VSS, on RA, afebrile on triage.
[2020-01-10 16:00] LABS: APPEARANCE,URINE SLIGHTLY CLOUDY; BILIRUBIN, URINE NEGATIVE (NEGATIVE); COLOR,URINE PALE YELLOW; GLUCOSE, URINE (UA) NEGATIVE (NEGATIVE); KETONES,URINE NEGATIVE (NEGATIVE); LEUKOCYTE ESTERASE ,URINE 1+ (NEGATIVE); NITRITE,URINE NEGATIVE (NEGATIVE); PH,URINE 6 (4.5-8.0); PROTEIN,URINE NEGATIVE (NEGATIVE); UROBILINOGEN,URINE NORMAL MG/DL (0.0-1.0)
--- NOTE | 2020-01-10 16:00 | NUR ---
ED Nurse Note: Pt taken to US accompanied by tech
[2020-01-10 16:04] VITALS: BP 106/65
[2020-01-10 16:11] LABS: BASOPHILS % (AUTO) 1.9 % (0.0-2.0); EOSINOPHILS % (AUTO) 4.5 % (0.0-3.0); HEMOGLOBIN 12.9 G/DL (12.0-16.0); LYMPHOCYTES % (AUTO) 42.8 % (20.0-45.0); MEAN CORPUSCULAR VOLUME 95 FL (80-99); MONOCYTES % (AUTO) 7.2 % (1.0-10.0); NEUTROPHILS % (AUTO) 43.6 % (45.0-75.0); PLATELET COUNT 307 K/UL (150-450); WHITE BLOOD COUNT 6.6 K/UL (4.8-10.8)
[2020-01-10 16:23] LABS: ANION GAP 10 mmol/L (5-15); BLOOD UREA NITROGEN 10 mg/dL (7-18); CALCIUM 9.1 MG/DL (8.5-10.1); CARBON DIOXIDE 26 MMOL/L (21-32); CHLORIDE 103 MMOL/L (98-107); CREATININE 0.9 MG/DL (0.55-1.30); POTASSIUM 3.8 MMOL/L (3.5-5.1); SODIUM 138 MMOL/L (136-145)
[2020-01-10 16:27] LABS: ALANINE AMINOTRANSFERASE 17 U/L (12-78); ALBUMIN 3.7 G/DL (3.4-5.0); ALKALINE PHOSPHATASE 111 U/L (46-116); ASPARTATE AMINO TRANSFERASE 17 U/L (15-37); BILIRUBIN,TOTAL 0.3 MG/DL (0.2-1.0)
[2020-01-10] MEDS ORDERED: Omnipaque-300 100ml vial INJ PRN (17:15)
--- NOTE | 2020-01-10 17:19 | Emergency Room Report ---
History of Present Illness General Chief Complaint: Abdominal Pain Source: Patient Present Illness HPI This patient states that for the past 10 days she has had pain in her left lower quadrant of her abdomen. She states that she associates this with the ending of her menses. She did see her primary care physician for this and was referred to a main galley scullion. She was also given Diflucan at that time for a yeast infection. She did get a pelvic exam. She states she has had normal bowel movements. She denies diarrhea or constipation. She states she has had cysts in the past. She denies dysuria or hematuria. She denies fever or chills. She denies nausea or vomiting. She has had no irregular menstrual bleeding. She has no other complaints. Allergies: Coded Allergies: No Known Allergies (Unverified , 05/09/12) COVID-19 Screening Contact w/high risk pt: No Experienced COVID-19 symptoms?: No COVID-19 Testing performed BUSINESS CENTER ATTENDANT: No Patient History Past Medical History: see triage record, asthma, other - Endometriosis Social History: Denies: smoking, alcohol use, drug use Last Menstrual Period: 01/03/20 Reviewed Nursing Documentation: PMH: Agreed; PSxH: Agreed Nursing Documentation-PMH Hx Cardiac Problems: No - Endometriosis Hx Hypertension: No Hx Pacemaker: No Hx Asthma: Yes Hx COPD: No Hx Diabetes: No Hx Cancer: No Hx Gastrointestinal Problems: No Hx Dialysis: No Hx Neurological Problems: No Hx Cerebrovascular Accident: No Hx Seizures: No Review of Systems All Other Systems: negative except mentioned in HPI Physical Exam Vital Signs Date Time Temp Pulse Resp B/P (MAP) Pulse Ox O2 Delivery O2 Flow Rate FiO2 01/10/20 15:27 98.2 72 18 106/65 (79) 96 Room Air Sp02 EP Interpretation: reviewed, normal General Appearance: no apparent distress, alert, GCS 15, non-toxic Head: normocephalic, atraumatic Eyes: bilateral eye normal inspection, bilateral eye PERRL ENT: hearing grossly normal, normal pharynx, no angioedema, normal voice Neck: full range of motion, supple/symm/no masses Respiratory: chest non-tender, lungs clear, normal breath sounds, no respiratory distress, no retraction, no accessory muscle use, speaking full sentences Cardiovascular #1: regular rate, rhythm, no edema Gastrointestinal: normal bowel sounds, soft, non-distended, no guarding, no rebound, tenderness - TTP in the LLQ Rectal: deferred Musculoskeletal: back normal, normal range of motion, gait/station normal, non-tender Neurologic: alert, motor strength/tone normal, oriented x3, sensory intact, responsive, speech normal Psychiatric: judgement/insight normal, memory normal, mood/affect normal, no suicidal/homicidal ideation Skin: normal color Medical Decision Making Diagnostic Impression: Primary Impression: Colitis ER Course This patient has a history of chronic pelvic pain. She has history of endometriosis. The patient was tender in her left lower quadrant/left pelvis and so at first I did obtain an ultrasound which showed no acute findings and no etiology for the patient's symptoms. The patient continued to state that this pain was different, so I did obtain a CT of the abdomen pelvis which showed diffuse wall thickening of the descending colon extending to the sigmoid colon. This is consistent with colitis this could be inflammatory or infectious. I will treat the patient has an infectious colitis, although, she does not have diarrhea. Possibly this patient's chronic pain could be inflammatory in etiology and could possibly be undiagnosed inflammatory bowel disease. Educated the patient on these findings and gave her the report of her CT scan and educated her to follow-up closely with her primary care physician and to follow- up with a client operations manager for a colonoscopy. The patient understood and indicated understanding and intention to do so. This patient was evaluated in the context of the global COVID-19 pandemic, which necessitated consideration that the patient might be at risk for infection with the [id number] virus that causes COVID-19. Institutional protocols and algorithms that pertain to the evaluation of patients at risk for COVID-19 and the state of rapid change based on information released by multiple regulatory bodies including the CDC and federal and state organizations. These policies and algorithms were followed during the patient's care in the ED. Laboratory Tests Test 01/10/20 15:35 01/10/20 15:49 Urine Color Pale yellow Urine Appearance Slightly cloudy Urine pH 6 (4.5-8.0) Urine Specific [place] 1.005 (1.005-1.035) Urine Protein Negative (NEGATIVE) Urine Glucose (UA) Negative (NEGATIVE) Urine Ketones Negative (NEGATIVE) Urine Blood Negative (NEGATIVE) Urine Nitrite Negative (NEGATIVE) Urine Bilirubin Negative (NEGATIVE) Urine Urobilinogen Normal MG/DL (0.0-1.0) Urine Leukocyte Esterase 1+ (NEGATIVE) H Urine RBC 0-2 /HPF (0 - 2) Urine WBC 5-10 /HPF (0 - 2) H Urine Squamous Epithelial Cells Many /LPF (NONE/OCC) H Urine Bacteria Moderate /HPF (NONE) H Urine HCG, Qualitative Negative (NEGATIVE) Chlamydia trachomatis RNA Pending Neisseria gonorrhoeae RNA Pending White Blood Count 6.6 K/UL (4.8-10.8) Red Blood Count 4.20 M/UL (4.20-5.40) Hemoglobin 12.9 G/DL (12.0-16.0) Hematocrit 40.0 % (37.0-47.0) Mean Corpuscular Volume 95 FL (80-99) Mean Corpuscular Hemoglobin 30.6 PG (27.0-31.0) Mean Corpuscular Hemoglobin Concent 32.1 G/DL (32.0-36.0) Red Cell Distribution Width 13.0 % (11.6-14.8) Platelet Count 307 K/UL (150-450) Mean Platelet Volume 7.4 FL (6.5-10.1) Neutrophils (%) (Auto) 43.6 % (45.0-75.0) L Lymphocytes (%) (Auto) 42.8 % (20.0-45.0) Monocytes (%) (Auto) 7.2 % (1.0-10.0) Eosinophils (%) (Auto) 4.5 % (0.0-3.0) H Basophils (%) (Auto) 1.9 % (0.0-2.0) Sodium Level 138 MMOL/L (136-145) Potassium Level 3.8 MMOL/L (3.5-5.1) Chloride Level 103 MMOL/L (98-107) Carbon Dioxide Level 26 MMOL/L (21-32) Anion Gap 10 mmol/L (5-15) Blood Urea Nitrogen 10 mg/dL (7-18) Creatinine 0.9 MG/DL (0.55-1.30) Estimated Glomerular Filtration Rate > 60 mL/min (>60) Glucose Level 111 MG/DL (74-106) H Calcium Level 9.1 MG/DL (8.5-10.1) Total Bilirubin 0.3 MG/DL (0.2-1.0) Aspartate Amino Transferase (AST) 17 U/L (15-37) Alanine Aminotransferase (ALT) 17 U/L (12-78) Alkaline Phosphatase 111 U/L (46-116) Total Protein 7.4 G/DL (6.4-8.2) Albumin 3.7 G/DL (3.4-5.0) Globulin 3.7 g/dL Albumin/Globulin Ratio 1.0 (1.0-2.7) CT/MRI/US Diagnostic Results CT/MRI/US Diagnostic Results : Imaging Test Ordered: US Pelvis, CT abd/pelvis Impression Ultrasound pelvis. No acute findings. See official report in electronic medical record. CT abdomen pelvis: Diffuse wall thickening of the descending colon extending to the sigmoid colon compatible with inflammatory infectious colitis. Please see official report in the electronic medical record. Last Vital Signs Date Time Temp Pulse Resp B/P (MAP) Pulse Ox O2 Delivery O2 Flow Rate FiO2 01/10/20 16:04 98.2 18 106/65 96 Room Air 01/10/20 16:04 72 Status: improved Disposition: HOME, SELF-CARE Condition: Improved Referrals: [facility],REFERRING (PCP) Hannah Steen DO Jan 10, 2020 17:19
--- NOTE | 2020-01-10 17:28 | NUR ---
ED Nurse Note: Pt was taken to CT on stable condition.
--- NOTE | 2020-01-10 17:41 | NUR ---
ED Nurse Note: Pt returned from CT.
--- NOTE | 2020-01-10 18:03 | Diagnostic Imaging Report ---
EXAM: CT Abdomen and Pelvis With Intravenous Contrast CLINICAL HISTORY: Abdominal and pelvic pain. TECHNIQUE: Axial computed tomography images of the abdomen and pelvis with intravenous contrast. CTDI is 9.7 mGy and DLP is 523.7 mGy-cm. One or more of the following dose reduction techniques were used: automated exposure control, adjustment of the mA and/or kV according to patient size, use of iterative reconstruction technique. COMPARISON: 06/01/2017. FINDINGS: Lung bases: Evaluation of the right lung base is unremarkable. Evaluation of the left lung base is unremarkable. Heart: Heart is normal in size. ABDOMEN: Liver: Diffuse fatty infiltration of the liver is noted. 1 cm simple cyst right lobe of the liver. Gallbladder and bile ducts: See below. Pancreas: See below. Spleen: The spleen enhance uniformly. Accessory spleen. Adrenals: The adrenal glands, the head, body, tail of the pancreas, and the gallbladder are unremarkable. Kidneys and ureters: Both kidneys are shown to excrete contrast bilaterally. No hydronephrosis. Stomach and bowel: Moderate quantity of stool throughout the colon. Diffuse wall thickening of the descending colon extending to the sigmoid colon compatible with mild to moderate inflammatory or infectious colitis. Possible diffuse wall thickening of loops of small bowel in the left epigastrium suggestive of possible concomitant enteritis. No obstruction. PELVIS: Appendix: The appendix is seen on coronal image 20 and is unremarkable. Bladder: Unremarkable. No mass. Reproductive: The uterus and adnexal regions are unremarkable. ABDOMEN and PELVIS: Intraperitoneal space: Unremarkable. No free air. No significant fluid collection. Bones/joints: Fatty sparing about the round ligament. No spondylolysis or spinal listhesis appeared The sacrum and coccyx are unremarkable. No acute fracture. No dislocation. Soft tissues: Ischiorectal fat is clean. Vasculature: Abdominal aorta is normal in caliber. Flow is demonstrated within the celiac, SMA, the renal arteries, and MARY JANE. No abdominal aortic aneurysm. Lymph nodes: No retroperitoneal lymphadenopathy. No pelvic or inguinal lymphadenopathy. IMPRESSION: 1. Diffuse fatty infiltration of the liver. 2. The gallbladder is unremarkable. 3. No renal calculus or hydronephrosis. 4. The appendix is unremarkable. 5. Diffuse wall thickening of the descending colon extending to the sigmoid colon compatible with inflammatory or infectious colitis. 6. Possible concomitant mild enteritis. 7. No bowel obstruction.
[2020-01-10] MEDS ORDERED: CIPROFLOXACIN500 M2 ORAL (18:11)
[2020-01-10] MEDS ORDERED: METRONIDAZOLE500 MG ORAL (18:11)
[2020-01-10] MEDS ORDERED: TRAMADOL HCL50 MG ORAL ×2 (18:11→18:12)
[2020-01-10 18:25] VITALS: BP 110/68
--- NOTE | 2020-01-10 18:25 | NUR ---
ER DISCHARGE NOTE: Patient is cleared to be discharged per ERMD, pt is aox4, on room air, with stable vital signs. pt was given dc and prescription instructions, pt was able to verbalize understanding, pt id band and iv site removed without complications. pt is able to ambulate with steady gait. pt took all belongings.
--- NOTE | 2020-01-10 18:42 | Diagnostic Imaging Report ---
EXAM: US Pelvis Transvaginal CLINICAL HISTORY: PAIN TECHNIQUE: Real-time transvaginal pelvic ultrasound with image documentation. Transvaginal imaging was used for better evaluation of the endometrium and adnexa. COMPARISON: No relevant prior studies available. FINDINGS: Uterus/cervix: Nabothian cysts in the cervix. Uterus measures 7.1 x 4. 9 x 4.9 cm. Endometrial stripe measures 9 mm. No myometrial mass. Right ovary: Right ovary measures 2.7 x 3.0 x 2.0 cm. Normal blood flow. Left ovary: Left ovary measures 2.7 x 2.6 x 1.1 cm. Normal blood flow. Free fluid: No free fluid. Bladder: Empty bladder which cannot be evaluated with this probe. IMPRESSION: No findings to explain patient's pain.
== END 2020-01-10 18:25 | disposition home or self-care (01) ==
LOC: EMR 16:02
DX: K52.9 Noninfective gastroenteritis and colitis, unspecified (principal); K76.0 Fatty (change of) liver, not elsewhere classified; N88.8 Other specified noninflammatory disorders of cervix uteri
CPT/HCPCS: 36415; 74177; 76830; 76856; 80053; 81003; 81025; 85025; 87086; 87491; 87590; Q9965; Z7502; 99284

== ENCOUNTER 2020-01-12 08:54 | Emergency (ER) | payer OTHER ==
[~2020-01-12] VITALS: Ht 170.2 cm; Wt 90.7 kg
[~2020-01-12 08:54] MED LIST changes: +CIPROFLOXACIN500 M2 ORAL
[2020-01-12 09:15] VITALS: BP 118/67
[2020-01-12] MEDS ORDERED: LORazepam Inj 2mg/ml 1ml IV ONE (09:15)
--- NOTE | 2020-01-12 09:15 | NUR ---
ED Nurse Note: Pt ambulated to ED from home d/t persistent vomiting for 4x. Pt is AOx4, calm and cooperative to care, per pt, she was seen and treated on the 01/09 with rx but started to feel throwing up accompanied by epigastric pain. Pt was placed on bed, ERMD at bedside.
--- NOTE | 2020-01-12 09:21 | Emergency Room Report ---
History of Present Illness General Chief Complaint: Vomiting Source: Patient, Medical Record Present Illness HPI Patient is a 34-year-old female presents for increased abdominal pain and vomiting. Recent ER visit from [address] imaging at that time showed colitis to the sigmoid and descending colon. She had been taking tramadol as well as oral antibiotics. Patient not been having any fever. Reports having decreased oral intake but has been drinking some rebecca cathy. Allergies: Coded Allergies: No Known Allergies (Unverified , 05/09/12) COVID-19 Screening Contact w/high risk pt: No Experienced COVID-19 symptoms?: No COVID-19 Testing performed [employer] OFFICER: No Patient History Past Medical History: see triage record Last Menstrual Period: 01/03/20 Now: No Reviewed Nursing Documentation: PMH: Agreed; PSxH: Agreed Nursing Documentation-PMH Past Medical History: No History, Except For Hx Cardiac Problems: No - Endometriosis Hx Hypertension: No Hx Pacemaker: No Hx Asthma: Yes Hx COPD: No Hx Diabetes: No Hx Cancer: No Hx Gastrointestinal Problems: No Hx Dialysis: No Hx Neurological Problems: No Hx Cerebrovascular Accident: No Hx Seizures: No Review of Systems All Other Systems: negative except mentioned in HPI Physical Exam Vital Signs Date Time Temp Pulse Resp B/P (MAP) Pulse Ox O2 Delivery O2 Flow Rate FiO2 01/12/20 09:03 98.8 66 15 118/67 (84) 99 Room Air Sp02 EP Interpretation: reviewed, normal General Appearance: normal inspection, well appearing, no apparent distress, alert, GCS 15, non-toxic Head: atraumatic ENT: normal ENT inspection, hearing grossly normal, normal voice Neck: normal inspection, full range of motion, supple, no bony tend Respiratory: normal inspection, lungs clear, normal breath sounds, no respiratory distress, no retraction, no wheezing Cardiovascular #1: regular rate, rhythm, no edema Gastrointestinal: normal inspection, normal bowel sounds, non tender, soft, no guarding, no hernia Genitourinary: no CVA tenderness Musculoskeletal: normal inspection, back normal, normal range of motion Neurologic: alert, responsive, speech normal, normal inspection Psychiatric: normal inspection, judgement/insight normal, mood/affect normal Medical Decision Making Diagnostic Impression: Primary Impression: Colitis ER Course Patient presented for abdominal pain. Differential diagnoses included ischemic bowel, appendicitis, perforated viscus, abdominal aortic aneurysm, inferior myocardial infarction, viral gastroenteritis among others.Because patient's complexity laboratory testing was ordered. Laboratory testing showed unremarkable white blood count. No significant anemia CT of the abdomen pelvis had previously showed colitis to the left side of the colon as well as the descending colon. Patient symptoms are consistent with continued pain to those areas. Patient was given IV fluids with improvement. Patient appears to be stable for close outpatient follow up. Patient states she will follow-up with her doctor later in the day. She is given prescription for nausea medications. She is advised to return if worse. This medical record is generated with [employer] national secretary software. There may be some national secretary discrepancies related to use of this software Labs Test 01/12/20 09:30 White Blood Count 5.5 K/UL (4.8-10.8) Red Blood Count 4.39 M/UL (4.20-5.40) Hemoglobin 14.0 G/DL (12.0-16.0) Hematocrit 42.9 % (37.0-47.0) Mean Corpuscular Volume 98 FL (80-99) Mean Corpuscular Hemoglobin 31.8 PG (27.0-31.0) Mean Corpuscular Hemoglobin Concent 32.5 G/DL (32.0-36.0) Red Cell Distribution Width 13.3 % (11.6-14.8) Platelet Count 305 K/UL (150-450) Mean Platelet Volume 7.5 FL (6.5-10.1) Neutrophils (%) (Auto) 39.6 % (45.0-75.0) Lymphocytes (%) (Auto) 43.1 % (20.0-45.0) Monocytes (%) (Auto) 8.6 % (1.0-10.0) Eosinophils (%) (Auto) 6.7 % (0.0-3.0) Basophils (%) (Auto) 2.0 % (0.0-2.0) Prothrombin Time 11.0 SEC (9.30-11.50) Prothromb Time International Ratio 1.0 (0.9-1.1) Activated Partial Thromboplast Time 24 SEC (23-33) Urine Color Pale yellow Urine Appearance Slightly cloudy Urine pH 7 (4.5-8.0) Urine Specific [place] 1.005 (1.005-1.035) Urine Protein Negative (NEGATIVE) Urine Glucose (UA) Negative (NEGATIVE) Urine Ketones Negative (NEGATIVE) Urine Blood Negative (NEGATIVE) Urine Nitrite Negative (NEGATIVE) Urine Bilirubin Negative (NEGATIVE) Urine Urobilinogen Normal MG/DL (0.0-1.0) Urine Leukocyte Esterase 1+ (NEGATIVE) Urine RBC 0 /HPF (0 - 2) Urine WBC 0-2 /HPF (0 - 2) Urine Squamous Epithelial Cells Moderate /LPF (NONE/OCC) Urine Bacteria Occasional /HPF (NONE) Urine HCG, Qualitative Negative (NEGATIVE) Sodium Level 139 MMOL/L (136-145) Potassium Level 4.4 MMOL/L (3.5-5.1) Chloride Level 105 MMOL/L (98-107) Carbon Dioxide Level 25 MMOL/L (21-32) Anion Gap 9 mmol/L (5-15) Blood Urea Nitrogen 11 mg/dL (7-18) Creatinine 0.8 MG/DL (0.55-1.30) Estimat Glomerular Filtration Rate > 60 mL/min (>60) Glucose Level 94 MG/DL (74-106) Calcium Level 8.6 MG/DL (8.5-10.1) Total Bilirubin 0.6 MG/DL (0.2-1.0) Aspartate Amino Transf (AST/SGOT) 29 U/L (15-37) Alanine Aminotransferase (ALT/SGPT) 31 U/L (12-78) Alkaline Phosphatase 99 U/L (46-116) Troponin I 0.000 ng/mL (0.000-0.056) Total Protein 7.4 G/DL (6.4-8.2) Albumin 3.9 G/DL (3.4-5.0) Globulin 3.5 g/dL Albumin/Globulin Ratio 1.1 (1.0-2.7) Lipase 62 U/L (73-393) Last Vital Signs Date Time Temp Pulse Resp B/P (MAP) Pulse Ox O2 Delivery O2 Flow Rate FiO2 01/12/20 09:15 98.8 15 118/67 99 Room Air 01/12/20 09:15 66 Status: improved Disposition: HOME, SELF-CARE Condition: Stable Scripts Ondansetron Odt* (ZOFRAN ODT*) 4 Mg Tab.rapdis 4 MG BC EVERY 8 HOURS, #10 TAB 0 Refills Prov: Joseph Thurman MD 01/12/20 Joseph Thurman MD Jan 12, 2020 09:21
[2020-01-12 09:53] LABS: APPEARANCE,URINE SLIGHTLY CLOUDY; BILIRUBIN, URINE NEGATIVE (NEGATIVE); COLOR,URINE PALE YELLOW; GLUCOSE, URINE (UA) NEGATIVE (NEGATIVE); KETONES,URINE NEGATIVE (NEGATIVE); LEUKOCYTE ESTERASE ,URINE 1+ (NEGATIVE); NITRITE,URINE NEGATIVE (NEGATIVE); PH,URINE 7 (4.5-8.0); PROTEIN,URINE NEGATIVE (NEGATIVE); UROBILINOGEN,URINE NORMAL MG/DL (0.0-1.0)
[2020-01-12 09:55] LABS: EOSINOPHILS % (AUTO) 6.7 % (0.0-3.0); HEMATOCRIT 42.9 % (37.0-47.0); LYMPHOCYTES % (AUTO) 43.1 % (20.0-45.0); MEAN CORPUSCULAR VOLUME 98 FL (80-99); MONOCYTES % (AUTO) 8.6 % (1.0-10.0); NEUTROPHILS % (AUTO) 39.6 % (45.0-75.0); PLATELET COUNT 305 K/UL (150-450); RED BLOOD COUNT 4.39 M/UL (4.20-5.40); RED CELL DISTRIBUTION WIDTH 13.3 % (11.6-14.8); WHITE BLOOD COUNT 5.5 K/UL (4.8-10.8)
[2020-01-12 10:19] LABS: ANION GAP 9 mmol/L (5-15); BLOOD UREA NITROGEN 11 mg/dL (7-18); CALCIUM 8.6 MG/DL (8.5-10.1); CARBON DIOXIDE 25 MMOL/L (21-32); CHLORIDE 105 MMOL/L (98-107); CREATININE 0.8 MG/DL (0.55-1.30); POTASSIUM 4.4 MMOL/L (3.5-5.1); SODIUM 139 MMOL/L (136-145)
[2020-01-12 10:23] LABS: ALANINE AMINOTRANSFERASE 31 U/L (12-78); ALBUMIN 3.9 G/DL (3.4-5.0); ALBUMIN/GLOBULIN RATIO 1.1 (1.0-2.7); ALKALINE PHOSPHATASE 99 U/L (46-116); ASPARTATE AMINO TRANSFERASE 29 U/L (15-37); BILIRUBIN,TOTAL 0.6 MG/DL (0.2-1.0)
[2020-01-12] MEDS ORDERED: ONDANSETRON ODT4 MG BC (10:39)
[2020-01-12 10:46] VITALS: BP 120/69
--- NOTE | 2020-01-12 10:46 | NUR ---
ER DISCHARGE NOTE: Patient is cleared to be discharged per ERMD, pt is aox4, on room air, with stable vital signs. pt was given dc and prescription instructions, pt was able to verbalize understanding, pt id band removed. pt is able to ambulate with steady gait. pt took all belongings.
== END 2020-01-12 10:46 | disposition home or self-care (01) ==
LOC: EMR 09:34
DX: K52.9 Noninfective gastroenteritis and colitis, unspecified (principal); J45.909 Unspecified asthma, uncomplicated
CPT/HCPCS: 36415; 80053; 81003; 81025; 83690; 84484; 85025; 85610; 85730; 96361; 96374; 96375; J2405; J7030; Z7502; 99284